=== PATIENT | female | born 1940 | race Caucasian/White ===

== ENCOUNTER 2023-02-05 15:15 | Inpatient (IN) | payer MEDICARE, SELFPAY ==
[2023-02-05 15:15] VITALS: BP 118/55; PULSE 73; RESP 18; TEMP 36.9; O2SAT 96
--- NOTE | 2023-02-05 16:35 | NURSING ---
Patient and family aware of team and rehab routine.
[2023-02-05 19:35] VITALS: PULSE 76; RESP 16; O2SAT 93
[2023-02-05] MEDS: Ipratropium/Albuterol Sulfate 3 ML AMPUL.NEB INHALATION (19:35)
--- NOTE | 2023-02-05 20:10 | NURSING ---
pts peg tube was checked for residual and 0ml was pulled back. Pts peg tube was flushed with 50ml of tap water and no issues with flushing. Pts tube feed was hooked up. Pt tolerated well
[2023-02-05] MEDS: Cephalexin 500 MG Capsule GT (20:11)
[2023-02-05] MEDS: Mirtazapine 15 MG Tablet GT (20:11)
[2023-02-05] MEDS: MELATONIN 3 MG TABLET GT (20:11)
[2023-02-05] MEDS: Timolol 0.5% 5ML OPTH.BTL 1 DRP EACH EYE (20:12)
[2023-02-05] MEDS: Latanoprost 0.005% 1 Bottle 1 DRP EACH EYE (20:12)
[2023-02-05] MEDS: BRIMONIDINE 0.2% 5ML BOTTLE 1 DRP EACH EYE (20:12)
[2023-02-05] MEDS: Jevity 1.5 1,000 ML 20 ML GT (20:13)
[2023-02-05 20:43] VITALS: BP 124/52; PULSE 68; RESP 16; TEMP 36.3; O2SAT 93
[2023-02-06] MEDS: Acetaminophen 650 MG/20 ML UDC GT ×3 (00:01→23:17)
[2023-02-06 00:07] VITALS: BMI 25.7
[2023-02-06 05:52] LABS: Hematocrit 31.2 % (37-47); Mean Corp Hgb Conc 32.1 g/dL (32-36); Mean Corpuscular Hgb 31.6 pg (27.0-32.0); Mean Corpuscular Volume 98.7 fL (81-99); Mean Platelet Vol. 11.6 fl (6.2-12.0); Platelet Count 189 K/mm3 (150-450); RBC Distribution Width CV 13.3 % (11.6-14.6); RBC Distribution Width SD 47.5 fl (35.1-43.9); Red Blood Count 3.16 M/mm3 (4.2-5.4); White Blood Count 6.8 K/mm3 (4.4-11.0)
[2023-02-06] MEDS: Enoxaparin 40 MG/0.4 ML Syringe SC (06:38)
[2023-02-06] MEDS: Levothyroxine 25 MCG TABLET GT (06:39)
[2023-02-06 07:02] LABS: ALB/GLOB Ratio 0.7 RATIO (0.9-2.4); AST(SGOT) 50 U/L (15-37); Alanine Aminotransfer ALT/SGPT 30 U/L (13-56); Albumin, Serum 2.3 g/dL (3.2-5.0); Alkaline Phosphatase 103 U/L (45-117); Anion Gap 6 (5-15); BUN 25 mg/dL (7-18); BUN/Creat Ratio 45.1 RATIO (10-20); Calcium,Total 8.4 mg/dL (8.5-10.1); Chloride 105 mmol/L (98-107); Creatinine, Serum 0.55 mg/dL (0.55-1.02); EST Glomerular Filtration Rate 112 mL/min (>60); Est Glom Filt Rate - Afr Amer 135 mL/min (>60); Estimated Creatinine Clearance 39.03 ml/min; Globulin 3.2 g/dL (2.2-4.2); Glucose 125 mg/dL (74-106); Magnesium 2.4 mg/dL (1.6-2.6); Phosphorus 4.2 mg/dL (2.5-4.9); Potassium 4.1 mmol/L (3.5-5.1); Protein, Total 5.5 g/dL (6.4-8.2); Sodium Level 140 mmol/L (136-145); T4 Free Direct 0.87 ng/dL (0.76-1.46); Thyroid Stim Hormone (TSH) 4.15 uIU/mL (0.358-3.74)
[2023-02-06 07:05] VITALS: PULSE 61; RESP 16; O2SAT 93
[2023-02-06] MEDS: Ipratropium/Albuterol Sulfate 3 ML AMPUL.NEB INHALATION ×3 (07:05→19:27)
[2023-02-06 07:31] VITALS: BP 105/43; PULSE 63; RESP 16; TEMP 36.6; O2SAT 93
[2023-02-06] MEDS: Lisinopril 10 MG Tablet 30 MG GT (11:13)
[2023-02-06] MEDS: Escitalopram Oxalate 10 MG Tablet GT (11:13)
[2023-02-06] MEDS: Polyethylene Glycol 3350 17 GM PACKET GT (11:13)
[2023-02-06] MEDS: Cephalexin 500 MG Capsule GT ×2 (11:14→21:28)
[2023-02-06] MEDS: Timolol 0.5% 5ML OPTH.BTL 1 DRP EACH EYE ×2 (11:14→21:30)
[2023-02-06] MEDS: BRIMONIDINE 0.2% 5ML BOTTLE 1 DRP EACH EYE ×2 (14:22→22:16)
[2023-02-06 16:00] VITALS: PULSE 63; RESP 16
--- NOTE | 2023-02-06 19:23 | EX.PCM.HP.RE ---
HPI - General General Date of Admission: 02/05/23 Date of Service: 02/06/23 Chief Complaint: Here for 3 hours daily rehabilitation. HPI Narrative DAV OLIVARES, is a 82 Female who presents with followin01/26/2023 Presented to [facility] with unwitnessed fall, head trauma. NIHSS 14, LUE/LLE weakness, left facial palsy, right gaze, dysarthria. CT head showed right frontal ICH right > left shift. Intubated, transferred to [facility]. 01/27/2023 Admit to [facility]. NIHSS 9. CTA negative AVM, hemorrhagic mass. Repeat CT head in 6 hours, MRI when able. Cardene drip for systolic blood pressure < 160. No acute surgical intervention recommended. 01/30/2023 Cipro for urinary tract infection. 01/31/2023 MRI brain showed subacute right frontal/basal ganglia hemorrhage with mild right L left midline shift. Tubefeeding continued. QT prolongation improved. Failed swallowing test, NPO recommended. PEG placed. 02/05/2023 Admit to for 3 hours daily rehabilitation, strengthening, prior to discharge home with . [facility] Medical History (Updated 02/06/23 @ 19:[address] Dion Werner MD) Depression Dysphagia as late effect of cerebrovascular accident (CVA) History of basal cell cancer Hypertension Hypothyroidism Non-smoker Stroke/cerebrovascular accident Home Medications acetaminophen 650 mg/20.3 mL oral suspension 650 mg feeding tube Q4H PRN Pain 02/05/23 [History Last Taken Unknown] brimonidine 0.2 % eye drops 1 drp EACH EYE BID eye 02/05/23 [History Last Taken Unknown] cephalexin 250 mg/5 mL oral suspension 500 mg feeding tube BID UTI 02/05/23 [History Last Taken Unknown] escitalopram oxalate 10 mg tablet (Lexapro) 10 mg feeding tube DAILY mood 02/05/23 [History Last Taken Unknown] ipratropium 0.5 mg-albuterol 3 mg (2.5 mg base)/3 mL nebulization soln 3 ml inhalation Q4H breathing 02/05/23 [History Last Taken Unknown] latanoprost 0.005 % eye drops 1 drp EACH EYE QHS eye 02/05/23 [History Last Taken Unknown] levothyroxine 25 mcg tablet 25 mcg feeding tube MOWEFR thyroid 02/05/23 [History Last Taken Unknown] lisinopril 30 mg tablet 30 mg feeding tube DAILY bp 02/05/23 [History Last Taken Unknown] melatonin 3 mg tablet 3 mg feeding tube QHS sleep 02/05/23 [History Last Taken Unknown] mirtazapine 15 mg tablet 15 mg feeding tube QHS mood 02/05/23 [History Last Taken Unknown] polyethylene glycol 3350 17 gram oral powder packet 17 g feeding tube DAILY constipation 02/05/23 [History Last Taken Unknown] timolol maleate 0.5 % eye drops 1 drp EACH EYE BID eye 02/05/23 [History Last Taken Unknown] Allergy/AdvReac Type Severity Reaction Status Date / Time Sulfa (Sulfonamide AdvReac PT UNSURE Verified 02/05/23 16:30 Antibiotics) OF REACTION Family History (Updated 02/06/23 @ 19:[address] Dion Werner MD) Mother Diabetes Hypertension Father Pancreatic cancer Sister CVA (cerebral vascular accident) Heart valve disease Surgical History (Updated 02/06/23 @ 19:[address] Dion Werner MD) History of cataract surgery History of dilatation and curettage History of tonsillectomy Social History (Updated 02/06/23 @ 19:[address] Dion Werner MD) household members: spouse Smoking Status: Never smoker alcohol intake: never substance use type: does not use ROS Constitutional Constitutional: Denies chills, fever(s) or weight gain ENT HEENT: Reports dysphagia; Denies headache(s), nasal congestion or nasal discharge Cardiovascular Cardiovascular: Denies chest pain or palpitations Respiratory/Chest Respiratory/Chest: Denies cough, excessive phlegm production or shortness of breath with exertion Gastrointestinal Gastrointestinal: Denies abdominal pain, nausea or vomiting Genitourinary Genitourinary: Denies dysuria Musculoskeletal Musculoskeletal: Denies joint pain or joint swelling Integumentary Integumentary: Denies rash or wounds Neurologic Neurologic: Reports weakness; Denies focal weakness, numbness or tingling Psychiatric Psychiatric: Denies anxiety, auditory hallucinations, depression, homicidal ideation or suicidal ideation Vital Signs Vital Signs Vital Signs: 02/05/23 19:35 02/05/23 19:35 02/05/23 20:43 Temperature 97.3 F L Temperature Source Axillary Pulse Rate 76 68 Pulse Strength Respiratory Rate 16 16 Respiratory Effort Respiratory Depth Respiratory Pattern Blood Pressure 124/52 H Blood Pressure Mean 76 Blood Pressure Source Monitor Blood Pressure Position Semi-Fowlers Blood Pressure Location Right Arm Pulse Ox 93 93 Oxygen Delivery Method Room Air Room Air 02/05/23 21:26 02/05/23 21:27 02/06/23 07:31 Temperature 97.9 F Temperature Source Temporal Pulse Rate 63 Pulse Strength Normal (2+) Respiratory Rate 16 Respiratory Effort Normal Non-Labored Respiratory Depth Normal Respiratory Pattern Normal Blood Pressure 105/43 L Blood Pressure Mean 63 Blood Pressure Source Monitor Blood Pressure Position Semi-Fowlers Blood Pressure Location Right Arm Pulse Ox 93 Oxygen Delivery Method Room Air 02/06/23 10:00 02/06/23 07:05 02/06/23 07:05 Temperature Temperature Source Pulse Rate 61 Pulse Strength Normal (2+) Respiratory Rate 16 Respiratory Effort Respiratory Depth Respiratory Pattern Normal Blood Pressure Blood Pressure Mean Blood Pressure Source Blood Pressure Position Blood Pressure Location Pulse Ox 93 Oxygen Delivery Method Room Air 02/06/23 16:00 Temperature Temperature Source Pulse Rate 63 Pulse Strength Respiratory Rate 16 Respiratory Effort Respiratory Depth Respiratory Pattern Normal Blood Pressure Blood Pressure Mean Blood Pressure Source Blood Pressure Position Blood Pressure Location Pulse Ox Oxygen Delivery Method Weight Weight: 70 kg Body Mass Index (BMI) 25.7 Indicators for Scoring Admitted with or Primary Diagnosis of CVA/Stroke: Yes Hx of CVA/Stroke: Yes (5/4-R FRONTAL BASAL GANGLIA ICH) Modified [place] Score MRS Score at time of Evaluation: 5-Severe disability NIHSS NIHSS 1a. Level of Consciousness: Alert; keenly responsive 1b. LOC Questions: Answers BOTH questions correctly. 1c. LOC Commands: Performs both tasks correctly. 2. Best Gaze: Normal 3. Visual: No visual loss 4. Facial Palsy: Minor paralysis (flattened nasolabial fold, asymmetry on smiling) 5a. Left Arm: No movement 5b. Right Arm: No drift; arm holds 90 (or 45) degrees for full 10 seconds 6a. Left Leg: No movement 6b. Right Leg: No effort against gravity; leg falls to bed immediately 7. Limb Ataxia: Absent 8. Sensory: [id number] sensory loss; 9. Best Language: No aphasia; normal 10. Dysarthria: Normal 11. Extinction and Inattention: No abnormality Total: 13 Physical Exam Const alert General Appearance: cooperative HEENT normocephalic Eyes PERRL and EOMs intact bilaterally Neck supple, no JVD and no carotid bruits Resp normal respiratory effort, normal air movement and clear to auscultation bilaterally Cardio regular rate and regular rhythm GI normal to inspection, nondistended, normoactive bowel sounds, non-tender and non-distended GI Narrative: PEG tube. Extremity normal capillary refill General Extremity: Negative for edema Skin no rashes or lesions noted General Skin Exam: no breakdown Neuro Neuro Narrative: Left hemiplegia, right lower extremity weakness. Psych affect normal Appearance: appropriate Results Lab / Micro Data Result Diagrams: 02/06/23 05:44 02/06/23 05:44 Labs: Laboratory Results - last 24 hr 02/06/23 05:44: WBC 6.8, RBC 3.16 L, Hgb 10.0 L, Hct 31.2 L, MCV 98.7, MCH 31.6, MCHC 32.1, RDW Std Deviation 47.5 H, RDW Coeff of Erasmo 13.3, Plt Count 189, MPV 11.6 02/06/23 05:44: Sodium 140, Potassium 4.1, Chloride 105, Carbon Dioxide 29.0, Anion Gap 6, BUN 25 H, Creatinine 0.55, Estim Creat Clear Calc 39.03, Est GFR (MDRD) Af Amer 135, Est GFR (MDRD) Non-Af 112, BUN/Creatinine Ratio 45.1 H, Glucose 125 H, Calcium 8.4 L, Phosphorus 4.2, Magnesium 2.4, Total Bilirubin 0.40, AST 50 H, ALT 30, Alkaline Phosphatase 103, Total Protein 5.5 L, Albumin 2.3 L, Globulin 3.2, Albumin/Globulin Ratio 0.7 L, TSH 4.15 H, Free T4 0.87 Assessment & Plan Assessment/Plan (1) Debility: (2) Intracranial hemorrhage on right side following injury: (3) Hypothyroidism: (4) Depression: (5) Insomnia: (6) Glaucoma: PLAN: Plan 82 year old female with below past medical history hospitalized for right frontal/basal ganglia intracranial hemorrhage, no surgery recommended, complicated by dysphagia requiring PEG tube, urinary tract infection, admitted to for 3 hours daily rehabilitation, strengthening, prior to discharge home with . Debility - PT/OT Dysphagia - ST. Pain - Tylenol 650mg q6h prn. Bowel - Miralax 17gm daily, Dulcolax 10mg pr x 1 prn, MOM 30ml x 1 prn. DVT prophylaxis - Lovenox 40mg sc daily. Glaucoma - Brimonidine 1gtt ou daily, Latanoprost 1gtt ou daily, Timolol 1gtt ou bid. Urinary tract infection - Kelex 500mg bid thru 02/12/2023. Depression - Lexapro 40mg daily, Mirtazapine 30mg qhs. Shortness of breath - Duoneb 3ml [id number]. Nutrition - Jevity 1.5 50cc/hour. Hypothyroidism - Levothyroxine 25mcg 3 days/week. Hypertension - Lisinopril 30mg daily. Insomnia - Melatonin 3mg qhs, Trazodone 100mg qhs prn.
[2023-02-06 19:27] VITALS: PULSE 68; RESP 16
--- NOTE | 2023-02-06 19:53 | PCM.RU.PYE ---
Admission Information Primary Diagnosis:: Right frontal basal ganglia intracranial hemorrhage. Status Changes from Prescreening?: No changes Identified Actual Problem List:: UTI, Aspiration, Mobility Impaired, Self Care Deficit, Know.Dfct/Disease Process and Know.Dfct of Medicaitons Potential Problem List:: DVT, Bleeding, Infection, UTI, Aspiration, Falls, Skin Integrity and Depression Risk of Complications DVT: LMWH Bleeding: Monitor Lab Values, Nursing to Teach Precautions for anti-coagulation therapy. and Stroke patients assessed for lethargy or change in status. Infection: Clinical Staff to Monitor for S/S of infection: and S/S of infection include fever, redness, warmth, etc. Urinary Tract Infection: Monitor for frequency, burning, discomfort, or incontinence. and Nursing will obtain urine sample for urinalysis and C&S when ordered. Aspiration: Clinical staff will monitor for coughing, drooling, congestion., Speech will evaluate swallowing and dsyphasia. and Nursing will monitor patient swallowing during meals. Falls: Patient will be evaluated for Fall Precautions and Patient will be placed on Fall Precautions as indicated per protocol. Skin Breakdown: Nursing will assess skin daily using assessment tool. and Nursing will place on Skin Breakdown Precautions as indicated. Pain: Clinical staff will assess patient's pain level per protocol., Medications will be given, if needed, and the pain level reassessed. and Other methods: Massage, distraction, decrease stimulus, etc. used PRN. Plan of Care Patient requires physician specializing in physical medicine and rehab oversight to provide close medical supervision of rehab issues including: Pain Management, Sleep Problems, Bowel and Bladder, Medical and co-morbidity Management, DVT prophylaxis, Rehabilitation Leadership and Coordination of treatment team Patient needs Physical Therapy: For a minimum of 1 hour and At least 5 out of 7 days Patient needs Physical Therapy to improve:: Mobility, Strengthening, Transfers, Stretching, ROM, Endurance, Stairs, Gait and Balance Patient needs Occupational Therapy: For a minimum of 1 hour and At least 5 out of 7 days Patient needs Occupational Therapy to improve ADL's incl.: Eating, Grooming, Bathing, Dressing, Toileting, Toilet transfers, Community Reintegration, Higher functioning activities, Household tasks, Adaptive Equipment and Other activities as determined Patient requires speech therapy: For a minimum of 1 hour and At least 5 out of 7 days Patient requires speech therapy for: Swallowing, Cognition and Language Skills Patient requires 24/ Rehabilitation Nursing for: Pain Issues, Identifying and preventing risk factors, Monitoring and reporting current medical conditions, Assisting with ambulation, transfer, and all ADL's, Teaching patients about disease process and medications, Family teaching, Providing safe environment, Bowel and Bladder Issues, Skin integrity and Medication Management Patient needs Broker In Charge/ Case Management for: Discharge Planning, Arranging Home Equipment or Services and Family Interventions Patient needs Dietary and Nutrition Services for: Adequate Nutrition, Nutritional Supplements and Nutritional Education Goals Patient will remain: free from falls and or injury at time of discharge. Patient will perform bed mobility at: MOD I level of assist. Patient will complete transfers from bed to chair at: - (CGA) Patient will ambulate: with standby assist, with LRD and - (25 feet.) Patient will complete upper body dressing at: Standby Assist. Patient will complete lower body dressing at: Standby Assist. Patient will complete toileting at: MOD I level of assist. Patient will perform bathing at: MOD I level of assist. Patient will complete grooming at: - (Supervision.) Patient will complete home management skills at: MOD I level of assist. Patient will achieve: at MOD I assist Patient will have pain level of: of 3 or less Patient's skin will: remain intact and free from infection. Patient will receive: adequate nutrition. Discharge Planning Pt Prognosis for Sig. Practical Improv. w/in Reasonable Time: Fair Estimated Length of stay (days): 21 Anticipated D/C Destination: [facility] Was Preadmission Assessment Accurate?: Yes
[2023-02-06 21:16] VITALS: BP 122/56; PULSE 78; RESP 16; TEMP 37; O2SAT 98
[2023-02-06 21:22] VITALS: BMI 25.7
[2023-02-06] MEDS: MELATONIN 3 MG TABLET GT (21:28)
[2023-02-06] MEDS: Mirtazapine 15 MG Tablet 30 MG GT (21:29)
[2023-02-06] MEDS: Latanoprost 0.005% 1 Bottle 1 DRP EACH EYE (21:31)
[2023-02-06 22:00] VITALS: PULSE 78; RESP 16; O2SAT 98
[2023-02-07] MEDS: Enoxaparin 40 MG/0.4 ML Syringe SC (05:09)
[2023-02-07] MEDS: Acetaminophen 650 MG/20 ML UDC GT ×2 (05:12→16:44)
[2023-02-07 06:00] VITALS: BMI 26.0; BMI 26.1
[2023-02-07 06:58] VITALS: PULSE 61; RESP 16; O2SAT 98
[2023-02-07 07:34] VITALS: BP 115/46; PULSE 64; RESP 15; TEMP 36.7; O2SAT 95
--- NOTE | 2023-02-07 08:48 | PN_ITS ---
Subjective Subjective Patient seen, examined. She has no complaints except she wants to eat yogurt. Modified barium swallow today, hopefully will be able to advance her diet, currently NPO. Objective Data Objective Data Vital Signs: Vital Signs Temp Pulse Resp BP Pulse Ox O2 Del Method 98.0 F 64 15 115/46 L 95 Room Air 02/07/23 07:34 02/07/23 07:34 02/07/23 07:34 02/07/23 07:34 02/07/23 07:34 02/07/23 07:34 Oxygen Delivery Method Room Air Weight: 70 kg Body Mass Index (BMI) 25.7 Intake & Output: Intake and Output for Last 24 Hours 02/05/23 02/06/23 02/07/23 23:59 23:59 23:59 Intake Total 405 / 405 747.33 / 747.33 Output Total 2575 / 2575 800 / 800 Balance -2170 / -2170 -52.67 / -52.67 Lab / Micro Data Result Diagrams: 02/06/23 05:44 02/06/23 05:44 Physical Exam Const alert General Appearance: cooperative HEENT normocephalic Eyes PERRL and EOMs intact bilaterally Neck supple, no JVD and no carotid bruits Resp normal respiratory effort, normal air movement and clear to auscultation bilaterally Cardio regular rate and regular rhythm GI normal to inspection, nondistended, normoactive bowel sounds, non-tender and non-distended GI Narrative: PEG tube. Extremity normal capillary refill General Extremity: Negative for edema Skin no rashes or lesions noted General Skin Exam: no breakdown Neuro Neuro Narrative: Dense left hemiplegia, right lower extremity weakness. Psych affect normal Appearance: appropriate Assessment & Plan Assessment/Plan (1) Debility: (2) Intracranial hemorrhage on right side following injury: (3) Hypothyroidism: (4) Depression: (5) Insomnia: (6) Glaucoma: PLAN: Plan 82 year old female with below past medical history hospitalized for right frontal/basal ganglia intracranial hemorrhage, no surgery recommended, complicated by dysphagia requiring PEG tube, urinary tract infection, admitted to for 3 hours daily rehabilitation, strengthening, prior to discharge home with . * Debility - PT/OT * Dysphagia - ST, MBS today, hopefully can advance diet from NPO. * Pain - Tylenol 650mg q6h prn. * Bowel - Miralax 17gm daily, Dulcolax 10mg pr x 1 prn, MOM 30ml x 1 prn. * DVT prophylaxis - Lovenox 40mg sc daily. * Glaucoma - Brimonidine 1gtt ou daily, Latanoprost 1gtt ou daily, Timolol 1gtt ou bid. * Urinary tract infection - Kelex 500mg bid thru 02/12/2023. * Depression - Lexapro 40mg daily, Mirtazapine 30mg qhs. * Shortness of breath - Duoneb 3ml [id number]. * Nutrition - Jevity 1.5 50cc/hour. * Hypothyroidism - Levothyroxine 25mcg 3 days/week. * Hypertension - Lisinopril 30mg daily. * Insomnia - Melatonin 3mg qhs, Trazodone 100mg qhs prn. Capacity Capacity Assessment Tool Can the patient make a choice & communicate that choice?: Yes Can the patient understand benefits, risks and alternatives?: Yes Can the patient make a logical, rational choice?: Yes Is the choice the patient makes consistent w/ their values?: Yes Is there an impending, emergent risk to the patient?: No Does the patient have an Advance Directive?: No Is there a Surrogate Available?: Yes i.e. HCPOA: Yes i.e. close relative (spouse, child, parent, sibling)?: Yes
[2023-02-07] MEDS: Lisinopril 10 MG Tablet 30 MG GT (10:41)
[2023-02-07] MEDS: Escitalopram Oxalate 20 MG Tablet 40 MG GT (10:42)
[2023-02-07] MEDS: Cephalexin 500 MG Capsule GT ×2 (10:42→22:06)
[2023-02-07] MEDS: Timolol 0.5% 5ML OPTH.BTL 1 DRP EACH EYE ×2 (10:42→22:06)
[2023-02-07] MEDS: Jevity 1.5. 1,000 ML Bottle 275 ML GT ×3 (10:43→22:34)
[2023-02-07 10:54] VITALS: PULSE 18; RESP 16
--- NOTE | 2023-02-07 11:10 | ST.MBS ---
Modified Barium Swallow - Patient Information Study Date: 02/07/23 Study Time: 12:10 Direct Billable Minutes: 125 Total Minutes procedure & reportin Diagnosis: Pharyngeal dysphagia in the setting of CVA Referring Physician: Dion Werner Chi Reason for Referral: Referred for instrumental assessment (MBSS) to provide further diagnostics and pathophysiology of dysphagia and treatment planning prior to diet advancement. Additional Dysphagia Testing: This patient underwent fiberoptic endoscopic evaluation of swallowing (FEES) on 01/31/2023 which revealed severe pharyngeal dysphagia with copious secretions throughout the hypopharynx and recurrent airway invasion prior to administration of oral trials. There was late and incomplete closure of the laryngeal vestibule with consistent deep penetration and suspected aspiration across all consistencies. Patient insensate to airway invasion and a cued cough did not effectively clear colored PO trials from the laryngeal vestibule. It was recommended that the patient remain NPO with alternative means of nutrition and hydration placement and a repeat MBS in 5-7 days. Medical History: DAV OLIVARES, is a 82 Female who presents with followin01/26/2023 Presented to [facility] with unwitnessed fall, head trauma. NIHSS 14, LUE/LLE weakness, left facial palsy, right gaze, dysarthria. CT head showed right frontal ICH right > left shift. Intubated, transferred to [facility]. 01/27/2023 Admit to [facility]. NIHSS 9. CTA negative AVM, hemorrhagic mass. Repeat CT head in 6 hours, MRI when able. Cardene drip for systolic blood pressure < 160. No acute surgical intervention recommended. 01/30/2023 Cipro for urinary tract infection. 01/31/2023 MRI brain showed subacute right frontal/basal ganglia hemorrhage with mild right L left midline shift. Tubefeeding continued. QT prolongation improved. Failed swallowing test, NPO recommended. PEG placed. 02/05/2023 Admit to for 3 hours daily rehabilitation, strengthening, prior to discharge home with . Past Medical History: Depression, Dysphagia as late effect of cerebrovascular accident (CVA), History of basal cell cancer, Hypertension, Hypothyroidism, Non-smoker, Stroke/cerebrovascular accident Current Diet Ordered: NPO, PEG Dentition: Natural Teeth Mental Status: WNL Comment: Mental status is sufficient to follow commands for participation in MBSS. Respiratory Status: Oxygenating on Room Air - Penetration-Aspiration Scale Penetration-Aspiration Scale: OBJECTIVE ASSESSMENT OF SWALLOW FUNCTION (QUANTITATIVE ? PER TRIAL): PENETRATION / ASPIRATION SCALE (LORD): 1 = does not enter airway 2 = enters airway/above vocal folds/ejected 3 = enters airway/above vocal folds/not ejected 4 = enters airway/contacts vocal folds/ejected 5 = enters airway/contacts vocal folds/not ejected 6 = enters airway/below vocal folds/ejected 7 = enters airway/below vocal folds/not ejected despite effort 8 = enters airway/below vocal folds/no effort VIDEOFLOROSCOPIC SCALE SCORE (LORD): Grade I = aspiration of material that has penetrated into the laryngeal vestibule, intact cough reflex Grade II = aspiration < 10 % of the bolus, intact cough reflex Grade III = aspiration of < 10 % of the bolus, reduced cough reflex or aspiration of > 10 % of the bolus, intact cough reflex Grade IV = aspiration of > 10 % of the bolus, reduced cough reflex - Penetration-Aspiration Scale Score Thin Liquid via teaspoon Result: 1= does not enter airway Thin Liquid via teaspoon Trial 2 Result: 5= enters airways/contacts vocal folds/not ejected Thin Liquid via small single sip from cup Result: 7= enters airways/below vocal folds/not ejected despite effort Thin Liquid via small single sip from cup Effortful swallow Result: 3= enters airways/above vocal folds/not ejected [place] Thick Liquid via small single sip from cup Result: 2= enter airway/above vocal folds/ejected [place] Thick Liquid via small single sip from cup Trial 2 Result: 3= enters airways/above vocal folds/not ejected Pudding Result: 1= does not enter airway Pudding Trial 2 Result: 1= does not enter airway [place] Result: 1= does not enter airway Thin Liquid via small single sip from cup Effortful swallow Trial 2 Result: 8= enters airway/below vocal folds/no effort Thin Liquid via small single sip from cup Effortful swallow Trial 3 Result: 5= enters airways/contacts vocal folds/not ejected [place] Thick Liquid via small single sip from cup Effortful swallow Result: 2= enter airway/above vocal folds/ejected [place] Thick Liquid via small single sip from cup Effortful swallow Trial 2 Result: 2= enter airway/above vocal folds/ejected - Oral Phase Labial Seal: Escape beyond mid-chin Tongue Control During Bolus Hold: Cohesive bolus between tongue to palatal seal Bolus Preparation/Mastication: Slow prolonged chewing/mashing with complete recollection Bolus Transport/Lingual Motion: Slowed tongue motion Oral Residue: Trace residue lining oral structures - Pharyngeal Phase Initiation of Pharyngeal Swallow: Bolus head in pyriforms Soft Palate Elevation: No bolus between soft palate and pharyngeal wall Laryngeal Elevation: Partial superior movement thyroid cart/partial apprx aryt-epig petiole Anterior Hyoid Excursion: Partial anterior movement Epiglottic Movement: Complete inversion Laryngeal Vestibule Closure at Height of Swallow: Incomplete; narrow column of air/contrast in laryngeal vestibule Pharyngeal Stripping Wave: Present - diminished Pharyngoesophageal Segment Opening: Complete distension and complete duration; no obstruction of flow Tongue Base Retraction: Narrow column of contrast between tongue base & post. pharyngeal wall Pharyngeal Residue: Collection of residue within or on pharyngeal structures - Esophageal Phase Esophageal Clearance: Esophageal retention w/ retrograde flow below pharyngoesophageal seg. - Diagnosis/Impression Diagnosis: oropharyngeal dysphagia (R13.12) Impression: This oral phase characterized by: poor labial seal resulting in bolus leakage from the left w/ spillage beyond mid chin slowed mastication slowed lingual motion for A-P bolus transit sufficient oral clearance The pharyngeal phase is marked by: bolus spillage to the level of the pyriforms prior to swallow onset, which intermittently spilled into the laryngeal vestibule contributing to laryngeal penetration prior to swallow onset reduced hyolaryngeal excursion, resulting in incomplete laryngeal vestibule closure w/ penetration during the swallow the patient has a forward leaning posture which further exacerbated spillage from the pyriforms into the laryngeal vestibule during the swallow use of an effortful swallow was not consistently effective to eliminate penetration/aspiration w/ thin liquids, but was effective w/ mildly thick liquids (penetration did occur w/ mildly thick liquids but was only a penetration/aspiration scale score of 2/complete ejection) reduced tongue base retraction and pharyngeal contraction contributed to post prandial contrast retention lining the tongue base and valleculae a double swallow was effective to clear a majority of pharyngeal residue initially the patient was sensate to aspiration as evidenced by cough response, although overt response to aspiration diminished as the study progressed w/ patient demonstrating no response/silent aspiration of thin liquid cough response was not sufficient to expel tracheal aspirate The esophageal phase is marked by: a small cricopharyngeal bar was noted at the level of C5, although this did not impede bolus flow through the esophagus esophageal screening for clearance revealed contrast retention w/in the lower half of the esophagus w/ some retrograde bolus flow appreciated although no bolus flow through the PES was appreciated Diet Recommended: Minced & Moist (IDDSI: 5) Mildly Thick Liquid (IDDSI: 2) Compensatory Strategies Recommended: Effortful swallow w/ mildly thick liquids Small bites and sips Slow rate of intake Double swallow for all bites/sips Sit upright w/ hip flexion at 90 degrees during PO intake, DO NOT LEAN FORWARD/KEEP HEAD UPRIGHT FOR INTAKE? Remain seated upright for 30-60 minutes after PO intake (GERD precautions) Supervision: Yes - 1:1 direct supervision recommended to verbally reinforce the above listed compensatory strategies to reduce risk for aspiration Need for Skilled Dysphagia Intervention: Yes - tx to address - diet texture/liquid consistency management training/instruction for compensatory strategy use oral strengthening to improve labial seal/reduce anterior spillage pharyngeal strengthening to improve swallow onset timing, pharyngeal contraction, laryngeal vestibule closure and tongue base retraction would consider implementation of the [place] Protocol following education Repeat MBSS: Yes - Recommend a repeat MBSS within 2 weeks (if clinically appropriate) and prior to advancement to thin liquids as the patient was noted to silently and overtly aspirate during this MBSS Education Completed: Yes - Results and recommendations were discussed with the Patient immediately following MBS completion, with the Patient verbalizing understanding and agreement with all recommendations and education provided. Patient would benefit from further education/re-instruction re: MBSS findings/recommendations/plan of care - Status Active ST Patient: Active - Contact Information [facility] Speech Therapy:: Brynn Ramirez M.A., CCC-SENIOR FRONT END WEB DEVELOPER [address] [place] [address] x [phone] [email or web address]
[2023-02-07 11:11] VITALS: BMI 25.7
[2023-02-07 13:56] VITALS: PULSE 64; RESP 18
[2023-02-07 19:19] VITALS: BP 120/52; PULSE 65; RESP 16; TEMP 36.6; O2SAT 95
[2023-02-07 22:00] VITALS: PULSE 65; RESP 16; O2SAT 95; BMI 25.7
[2023-02-07] MEDS: Mirtazapine 15 MG Tablet 30 MG GT (22:05)
[2023-02-07] MEDS: MELATONIN 3 MG TABLET GT (22:06)
[2023-02-07] MEDS: Latanoprost 0.005% 1 Bottle 1 DRP EACH EYE (22:07)
[2023-02-07] MEDS: BRIMONIDINE 0.2% 5ML BOTTLE 1 DRP EACH EYE (22:08)
[2023-02-07] MEDS: Menthol/Lanolin/Calamine/Znox 113 GM Tube 1 APPLIC TOPICAL (22:54)
[2023-02-08] MEDS: Levothyroxine 25 MCG TABLET GT (05:00)
[2023-02-08] MEDS: Enoxaparin 40 MG/0.4 ML Syringe SC (05:58)
[2023-02-08] MEDS: Menthol/Lanolin/Calamine/Znox 113 GM Tube 1 APPLIC TOPICAL ×2 (05:59→21:00)
[2023-02-08 06:00] VITALS: BMI 25.6
[2023-02-08] MEDS: Jevity 1.5. 1,000 ML Bottle 275 ML GT ×4 (06:11→21:45)
[2023-02-08] MEDS: Escitalopram Oxalate 20 MG Tablet 40 MG GT (08:07)
[2023-02-08] MEDS: Cephalexin 500 MG Capsule GT ×2 (08:07→21:40)
[2023-02-08] MEDS: Timolol 0.5% 5ML OPTH.BTL 1 DRP EACH EYE ×2 (08:10→21:44)
[2023-02-08] MEDS: Acetaminophen 650 MG/20 ML UDC GT ×2 (08:21→21:39)
[2023-02-08 09:53] VITALS: BP 119/46; PULSE 59; RESP 17; TEMP 37.1; O2SAT 95
[2023-02-08 10:00] VITALS: PULSE 59; RESP 17; O2SAT 95
--- NOTE | 2023-02-08 11:51 | PN_ITS ---
Subjective Subjective Patient seen, examined. No issues overnight, she had modified barium swallow yesterday, Speech therapy will challenge her with modified diet and see how she does. Objective Data Objective Data Vital Signs: Vital Signs Temp Pulse Resp BP Pulse Ox O2 Del Method 98.7 F 59 L 17 119/46 L 95 Room Air 02/08/23 09:53 02/08/23 10:00 02/08/23 10:00 02/08/23 09:53 02/08/23 10:00 02/08/23 10:00 Oxygen Delivery Method Room Air Weight: 69.8 kg Body Mass Index (BMI) 25.6 Intake & Output: Intake and Output for Last 24 Hours 02/06/23 02/07/23 02/08/23 23:59 23:59 23:59 Intake Total 405 / 405 2457.33 / 2457.33 690 / 690 Output Total 2575 / 2575 1999 / 1999 650 / 650 Balance -2170 / -2170 457.33 / 457.33 40 / 40 Lab / Micro Data Result Diagrams: 02/06/23 05:44 02/06/23 05:44 Physical Exam Const alert General Appearance: cooperative HEENT normocephalic Eyes PERRL and EOMs intact bilaterally Neck supple, no JVD and no carotid bruits Resp normal respiratory effort, normal air movement and clear to auscultation bilaterally Cardio regular rate and regular rhythm GI normal to inspection, nondistended, normoactive bowel sounds, non-tender and non-distended GI Narrative: PEG tube. Extremity normal capillary refill General Extremity: Negative for edema Skin no rashes or lesions noted General Skin Exam: no breakdown Neuro Neuro Narrative: Dense left hemiplegia, right lower extremity weakness. Psych affect normal Appearance: appropriate Assessment & Plan Assessment/Plan (1) Debility: (2) Intracranial hemorrhage on right side following injury: (3) Hypothyroidism: (4) Depression: (5) Insomnia: (6) Glaucoma: PLAN: Plan 82 year old female with below past medical history hospitalized for right frontal/basal ganglia intracranial hemorrhage, no surgery recommended, complicated by dysphagia requiring PEG tube, urinary tract infection, admitted to for 3 hours daily rehabilitation, strengthening, prior to discharge home with . * Debility - PT/OT * Dysphagia - ST, MBS done, ST to challenge her with modified diet today. * Pain - Tylenol 650mg q6h prn. * Bowel - Miralax 17gm daily, Dulcolax 10mg pr x 1 prn, MOM 30ml x 1 prn. * DVT prophylaxis - Lovenox 40mg sc daily. * Glaucoma - Brimonidine 1gtt ou daily, Latanoprost 1gtt ou daily, Timolol 1gtt ou bid. * Urinary tract infection - Kelex 500mg bid thru 02/12/2023. * Depression - Lexapro 40mg daily, Mirtazapine 30mg qhs. * Shortness of breath - Duoneb 3ml [id number]. * Nutrition - Jevity 1.5 50cc/hour. * Hypothyroidism - Levothyroxine 25mcg 3 days/week. * Hypertension - Lisinopril 30mg daily. * Insomnia - Melatonin 3mg qhs, Trazodone 100mg qhs prn. Capacity Capacity Assessment Tool Can the patient make a choice & communicate that choice?: Yes Can the patient understand benefits, risks and alternatives?: Yes Can the patient make a logical, rational choice?: Yes Is the choice the patient makes consistent w/ their values?: Yes Is there an impending, emergent risk to the patient?: No Does the patient have an Advance Directive?: No Is there a Surrogate Available?: Yes i.e. HCPOA: Yes i.e. close relative (spouse, child, parent, sibling)?: Yes
[2023-02-08 19:27] VITALS: BP 122/56; PULSE 59; RESP 20; TEMP 37.3; O2SAT 96
[2023-02-08 20:28] VITALS: TEMP 36.8
[2023-02-08 20:50] VITALS: BMI 25.6
[2023-02-08] MEDS: Latanoprost 0.005% 1 Bottle 1 DRP EACH EYE (21:39)
[2023-02-08] MEDS: MELATONIN 3 MG TABLET GT (21:40)
[2023-02-08] MEDS: BRIMONIDINE 0.2% 5ML BOTTLE 1 DRP EACH EYE (21:40)
[2023-02-08] MEDS: Mirtazapine 15 MG Tablet 30 MG GT (21:40)
[2023-02-09 05:46] VITALS: BMI 25.2
[2023-02-09] MEDS: Menthol/Lanolin/Calamine/Znox 113 GM Tube 1 APPLIC TOPICAL ×2 (05:49→20:34)
[2023-02-09] MEDS: Enoxaparin 40 MG/0.4 ML Syringe SC (05:50)
[2023-02-09] MEDS: Jevity 1.5. 1,000 ML Bottle 275 ML GT ×2 (05:51→20:34)
--- NOTE | 2023-02-09 08:14 | CASEMGMT ---
Social Work IDT met with patient, and dtr for Team meeting. Discussed patient's progress in PT/OT/ST/SN. Educated to [facility] insurance with NRD 02/13 and continued stay is not guaranteed with each review. Pt's goal is to return home closer to PLOF with . cannot provide heavy physical assist. Will ReTeam weekly. SW to continue to follow to assist with DC planning. Will determine progress and if an alternative DC plan will be needed. did state he has talked to [facility] SNF for a transition after RU. SW offered to send initial referral for insurance verification. Educated that if insurance does not approve SNF stay, it would be OOP or discuss Medicaid. expressed understanding and is prepared to pay OOP if needed. SW explained and provided family with [facility] information and added to mailing list. Referral sent to [facility] via [facility]. Corie Ngo, ZAIN COLLAZOW
[2023-02-09 08:19] VITALS: BP 116/55; PULSE 60; RESP 15; TEMP 36.8; O2SAT 95
[2023-02-09 08:29] VITALS: BMI 25.2
[2023-02-09] MEDS: Lisinopril 10 MG Tablet 30 MG GT (08:45)
[2023-02-09] MEDS: Polyethylene Glycol 3350 17 GM PACKET GT (08:46)
[2023-02-09] MEDS: Escitalopram Oxalate 20 MG Tablet 40 MG GT (08:46)
[2023-02-09] MEDS: Cephalexin 500 MG Capsule GT ×2 (08:46→20:34)
[2023-02-09] MEDS: Timolol 0.5% 5ML OPTH.BTL 1 DRP EACH EYE ×2 (08:46→20:33)
--- NOTE | 2023-02-09 15:02 | PN_ITS ---
Subjective Subjective Patient seen, examined during Team Rounds. , daughter present for meeting. 2 days ago, she had modified barium swallow, she is now on modified diet. Patient has excellent attitude. Objective Data Objective Data Vital Signs: Vital Signs Temp Pulse Resp BP Pulse Ox O2 Del Method 98.2 F 60 15 116/55 L 95 Room Air 02/09/23 08:19 02/09/23 08:19 02/09/23 08:19 02/09/23 08:19 02/09/23 08:19 02/09/23 08:19 Oxygen Delivery Method Room Air Weight: 68.8 kg Body Mass Index (BMI) 25.2 Intake & Output: Intake and Output for Last 24 Hours 02/07/23 02/08/23 02/09/23 23:59 23:59 23:59 Intake Total 2457.33 / 2457.33 1205 / 1205 2220 / 2220 Output Total 1999 1950 / 1950 2450 / 2450 Balance 457.33 / 457.33 -745 / -745 -230 / -230 Lab / Micro Data Result Diagrams: 02/06/23 05:44 02/06/23 05:44 Physical Exam Const alert General Appearance: cooperative HEENT normocephalic Eyes PERRL and EOMs intact bilaterally Neck supple, no JVD and no carotid bruits Resp normal respiratory effort, normal air movement and clear to auscultation bilaterally Cardio regular rate and regular rhythm GI normal to inspection, nondistended, normoactive bowel sounds, non-tender and non-distended GI Narrative: PEG tube. Extremity normal capillary refill General Extremity: Negative for edema Skin no rashes or lesions noted General Skin Exam: no breakdown Neuro Neuro Narrative: Dense left hemiplegia, also right lower extremity weakness. Psych affect normal Appearance: appropriate Assessment & Plan Assessment/Plan (1) Debility: (2) Intracranial hemorrhage on right side following injury: (3) Hypothyroidism: (4) Depression: (5) Insomnia: (6) Glaucoma: PLAN: Plan 82 year old female with below past medical history hospitalized for right frontal/basal ganglia intracranial hemorrhage, no surgery recommended, complicated by dysphagia requiring PEG tube, urinary tract infection, admitted to for 3 hours daily rehabilitation, strengthening, prior to discharge home with . * Debility - PT/OT * Dysphagia - ST, MBS done, ST to challenge her with modified diet today. * Pain - Tylenol 650mg q6h prn. * Bowel - Miralax 17gm daily, Dulcolax 10mg pr x 1 prn, MOM 30ml x 1 prn. * DVT prophylaxis - Lovenox 40mg sc daily. * Glaucoma - Brimonidine 1gtt ou daily, Latanoprost 1gtt ou daily, Timolol 1gtt ou bid. * Urinary tract infection - Kelex 500mg bid thru 02/12/2023. * Depression - Lexapro 40mg daily, Mirtazapine 30mg qhs. * Shortness of breath - Duoneb 3ml [id number]. * Nutrition - Jevity 1.5 50cc/hour. * Hypothyroidism - Levothyroxine 25mcg 3 days/week. * Hypertension - Lisinopril 30mg daily. * Insomnia - Melatonin 3mg qhs, Trazodone 100mg qhs scheduled, patient woke at 2AM. Capacity Capacity Assessment Tool Can the patient make a choice & communicate that choice?: Yes Can the patient understand benefits, risks and alternatives?: Yes Can the patient make a logical, rational choice?: Yes Is the choice the patient makes consistent w/ their values?: Yes Is there an impending, emergent risk to the patient?: No Does the patient have an Advance Directive?: No Is there a Surrogate Available?: Yes i.e. HCPOA: Yes i.e. close relative (spouse, child, parent, sibling)?: Yes
[2023-02-09] MEDS: Tamsulosin HCl 0.4 MG Capsule PO (17:16)
[2023-02-09] MEDS: BRIMONIDINE 0.2% 5ML BOTTLE 1 DRP EACH EYE (20:33)
[2023-02-09] MEDS: traZODone 100 MG Tablet PO (20:33)
[2023-02-09] MEDS: Latanoprost 0.005% 1 Bottle 1 DRP EACH EYE (20:33)
[2023-02-09] MEDS: Mirtazapine 15 MG Tablet 30 MG GT (20:34)
[2023-02-09] MEDS: MELATONIN 3 MG TABLET GT (20:34)
[2023-02-09] MEDS: Acetaminophen 650 MG/20 ML UDC GT (20:49)
[2023-02-09 21:18] VITALS: BP 108/57; PULSE 61; RESP 16; TEMP 36.5; O2SAT 99
[2023-02-10 06:07] VITALS: BMI 25.4
[2023-02-10] MEDS: Menthol/Lanolin/Calamine/Znox 113 GM Tube 1 APPLIC TOPICAL ×2 (06:11→20:51)
[2023-02-10] MEDS: Levothyroxine 25 MCG TABLET GT (06:12)
[2023-02-10] MEDS: Enoxaparin 40 MG/0.4 ML Syringe SC (06:12)
[2023-02-10 07:46] VITALS: BP 122/51; PULSE 68; RESP 18; TEMP 36.2; O2SAT 95
[2023-02-10] MEDS: Acetaminophen 650 MG/20 ML UDC GT (08:11)
[2023-02-10] MEDS: Polyethylene Glycol 3350 17 GM PACKET GT (08:16)
[2023-02-10] MEDS: Lisinopril 10 MG Tablet 30 MG GT (08:20)
[2023-02-10] MEDS: Cephalexin 500 MG Capsule GT ×2 (08:23→20:50)
[2023-02-10] MEDS: Escitalopram Oxalate 20 MG Tablet 40 MG GT (08:24)
[2023-02-10] MEDS: Timolol 0.5% 5ML OPTH.BTL 1 DRP EACH EYE ×2 (08:37→20:51)
[2023-02-10 10:05] VITALS: BMI 25.4
--- NOTE | 2023-02-10 13:30 | NURSING ---
pt in therapy, therapy notified staff that patient's peg tube had pulled out. Dr. Werner notified. d/t pt eating so well, Dr. Werner stated to leave peg tube out and pt would no longer need to be on Jevity. pt assisted back to bed, cleaned and clothing changed. Peg tube site covered with dressing and secured with tape. pt resting in bed. Will continue to monitor.
[2023-02-10] MEDS: Tamsulosin HCl 0.4 MG Capsule PO (17:09)
[2023-02-10 20:18] VITALS: BP 106/52; PULSE 69; RESP 18; TEMP 36.8; O2SAT 100
[2023-02-10] MEDS: Mirtazapine 15 MG Tablet 30 MG GT (20:50)
[2023-02-10] MEDS: Latanoprost 0.005% 1 Bottle 1 DRP EACH EYE (20:50)
[2023-02-10] MEDS: traZODone 100 MG Tablet PO (20:50)
[2023-02-10] MEDS: MELATONIN 3 MG TABLET GT (20:50)
[2023-02-10] MEDS: BRIMONIDINE 0.2% 5ML BOTTLE 1 DRP EACH EYE (20:51)
[2023-02-10] MEDS: Acetaminophen 325 MG Tablet 650 MG PO (20:57)
[2023-02-11 05:50] VITALS: BMI 25.2
[2023-02-11] MEDS: Menthol/Lanolin/Calamine/Znox 113 GM Tube 1 APPLIC TOPICAL ×2 (05:51→20:15)
[2023-02-11] MEDS: Enoxaparin 40 MG/0.4 ML Syringe SC (05:51)
[2023-02-11 07:55] VITALS: BP 116/47; PULSE 61; RESP 15; TEMP 36.1; O2SAT 94
--- NOTE | 2023-02-11 09:30 | NURSING ---
PT came and asked this nurse if patient can have a chocolate because there is a big box: in patients room. This nurse found box of chocolates in gift bag on patients table by window. This nurse told patient she cannot eat chocolate per her orders (chocolate also contained assortment of nuts, etc). Patient reported her daughter brought her the chocolates. This nurse called daughter Adwoa. This nurse asked Adwoa if she got orders from someone to allow her mother to have these chocolates and daughter reported that a visitor must have brought them in and that she did not nor did she think it was her sister. Adwoa did report she brought her mother in a chocolate chip cookie but did not give it to her.. This nurse told daughter to pass along to other family members that no food can be brought in by them. Daughter agreed. ST made aware today.
[2023-02-11] MEDS: Lisinopril 10 MG Tablet 30 MG GT (09:56)
[2023-02-11] MEDS: Timolol 0.5% 5ML OPTH.BTL 1 DRP EACH EYE ×2 (09:57→20:18)
[2023-02-11] MEDS: Cephalexin 500 MG Capsule GT ×2 (09:57→20:17)
[2023-02-11] MEDS: Polyethylene Glycol 3350 17 GM PACKET GT (09:57)
[2023-02-11] MEDS: Escitalopram Oxalate 20 MG Tablet 40 MG GT (09:57)
[2023-02-11 13:05] VITALS: BMI 25.2
[2023-02-11] MEDS: Tamsulosin HCl 0.4 MG Capsule PO (17:46)
[2023-02-11] MEDS: Acetaminophen 325 MG Tablet 650 MG PO (19:08)
[2023-02-11 19:17] VITALS: BP 107/58; PULSE 71; RESP 18; TEMP 36.9; O2SAT 95
[2023-02-11] MEDS: BRIMONIDINE 0.2% 5ML BOTTLE 1 DRP EACH EYE (20:14)
[2023-02-11] MEDS: traZODone 100 MG Tablet PO (20:16)
[2023-02-11] MEDS: Mirtazapine 15 MG Tablet 30 MG GT (20:17)
[2023-02-11] MEDS: MELATONIN 3 MG TABLET GT (20:17)
[2023-02-11] MEDS: Latanoprost 0.005% 1 Bottle 1 DRP EACH EYE (20:18)
[2023-02-11 20:53] VITALS: BMI 25.2
[2023-02-11 22:00] VITALS: PULSE 71; RESP 18; O2SAT 98
[2023-02-12 06:00] VITALS: BMI 25.3
[2023-02-12] MEDS: Enoxaparin 40 MG/0.4 ML Syringe SC (06:53)
[2023-02-12] MEDS: Menthol/Lanolin/Calamine/Znox 113 GM Tube 1 APPLIC TOPICAL ×2 (06:54→21:14)
[2023-02-12] MEDS: Acetaminophen 325 MG Tablet 650 MG PO ×2 (07:02→16:47)
[2023-02-12] MEDS: Polyethylene Glycol 3350 17 GM PACKET GT (09:32)
[2023-02-12] MEDS: Cephalexin 500 MG Capsule GT ×2 (09:32→21:16)
[2023-02-12] MEDS: Timolol 0.5% 5ML OPTH.BTL 1 DRP EACH EYE ×2 (09:32→21:11)
[2023-02-12] MEDS: Lisinopril 10 MG Tablet 30 MG GT (09:32)
[2023-02-12] MEDS: Escitalopram Oxalate 20 MG Tablet 40 MG GT (09:32)
[2023-02-12 10:00] VITALS: BP 124/56; PULSE 60; RESP 16; TEMP 36.7; O2SAT 95
[2023-02-12 15:26] VITALS: BMI 25.3
[2023-02-12] MEDS: Tamsulosin HCl 0.4 MG Capsule PO (16:47)
[2023-02-12 19:03] VITALS: BP 109/53; PULSE 65; RESP 16; TEMP 36.5; O2SAT 98
[2023-02-12] MEDS: BRIMONIDINE 0.2% 5ML BOTTLE 1 DRP EACH EYE (21:11)
[2023-02-12] MEDS: Latanoprost 0.005% 1 Bottle 1 DRP EACH EYE (21:12)
[2023-02-12] MEDS: Mirtazapine 15 MG Tablet 30 MG GT (21:15)
[2023-02-12] MEDS: traZODone 100 MG Tablet PO (21:15)
[2023-02-12] MEDS: MELATONIN 3 MG TABLET GT (21:16)
[2023-02-12 21:42] VITALS: BMI 25.3
[2023-02-12 22:00] VITALS: PULSE 65; RESP 16; O2SAT 98
[2023-02-13] MEDS: Acetaminophen 325 MG Tablet 650 MG PO ×2 (03:44→20:03)
[2023-02-13] MEDS: Menthol/Lanolin/Calamine/Znox 113 GM Tube 1 APPLIC TOPICAL ×2 (06:36→21:02)
[2023-02-13] MEDS: Levothyroxine 25 MCG TABLET GT (06:37)
[2023-02-13] MEDS: Enoxaparin 40 MG/0.4 ML Syringe SC (06:37)
[2023-02-13 07:44] VITALS: BP 121/52; PULSE 57; RESP 15; TEMP 36.5; O2SAT 94
[2023-02-13] MEDS: Escitalopram Oxalate 20 MG Tablet 40 MG GT (07:58)
[2023-02-13] MEDS: Lisinopril 10 MG Tablet 30 MG GT (07:58)
[2023-02-13] MEDS: Polyethylene Glycol 3350 17 GM PACKET GT (07:58)
[2023-02-13] MEDS: Timolol 0.5% 5ML OPTH.BTL 1 DRP EACH EYE ×2 (07:59→21:03)
[2023-02-13 10:28] VITALS: BMI 24.7
--- NOTE | 2023-02-13 12:19 | PCM.PROGNOTE ---
Subjective Subjective Afebrile VSS-blood pressure is well controlled and the pulse rate is within normal limits. Maintaining appropriate oxygen saturation on RA Oral intake is good Weight is down 3 to 5 pounds since admission. Discussed with nursing - no problems that need addressed Reviewed the PT/OT/ST notes Medication list reviewed. All admission labs were personally reviewed. White blood cell count and platelets were normal but the hemoglobin was decreased at 10.0 with an MCV of 98.7. RDW was normal. BUN was elevated at 25 with a creatinine of 0.55 and a BUN/creatinine ratio of 39. Calcium corrected for hypoalbuminemia was within normal limits. Phosphorus and magnesium were normal. LFTs were unremarkable. TSH was mildly increased at 4.15 but the free T4 was 0.87. Dr. Werner's H&P was reviewed. Patient is an 82 female who presented to [facility] on 01/26/2023 after an unwitnessed fall. NIHSS was 14. A noncontrast CT brain showed a right frontal intracerebral hemorrhage with a right to left shift. She was transported to [facility] where a CTA was negative for AVM or hemorrhagic mass. No surgical intervention was necessary and she had an MRI on 01/31/2023 that showed a subacute right frontal/basal ganglia hemorrhage with a mild right to left midline shift. She failed her swallowing evaluation and was placed on tube feed. PEG tube was placed on 01/31/2023. On 02/05/2023 she was transferred to the acute inpatient rehab unit at [facility] for 3 hours of therapy daily to restore function/independence at or near her previous level. She was quite active prior to the fall. She has a hx of depression and is on Remeron and Lexapro. She follows with a psychiatrist regularly. NIH at presentation to rehab is 13. Psychiatrist is Dr. Sam. Velma tells me that she is sleeping well. She also tells me she is very motivated to get better and go home. She denies lightheadedness, cough, shortness of breath, palpitations, chest pain and calf pain. She has had a Alcantara catheter present since admission. She has occasional nausea. She asked for TUMS for stomach upset. Denies abd pain. She has a PEG and is getting TF. She is on thickened liquids. Objective Data Objective Data Vital Signs: Vital Signs Temp Pulse Resp BP Pulse Ox O2 Del Method 97.7 F L 57 L 15 121/52 H 94 Room Air 02/13/23 07:44 02/13/23 07:44 02/13/23 07:44 02/13/23 07:44 02/13/23 07:44 02/12/23 22:00 Oxygen Delivery Method Room Air Weight: 148 lb 5.938 oz Body Mass Index (BMI) 24.7 Intake & Output: Intake and Output for Last 24 Hours 02/11/23 02/12/23 02/13/23 23:59 23:59 23:59 Intake Total 1410 / 1410 1500 / 1500 740 / 740 Output Total 1655 / 1655 2450 / 2450 800 / 800 Balance -245 / -245 -950 / -950 -60 / -60 Lab / Micro Data Result Diagrams: 02/06/23 05:44 02/06/23 05:44 Physical Exam Const alert, oriented x3 and no apparent distress Constitutional Narrative: Slumped to the R in the bed. Pleasant and talkative General Appearance: cooperative HEENT HEENT Narrative: MM are dry. Denies mouth pain Neck supple Resp clear to auscultation bilaterally Effort and Inspection: Negative for tachypneic or labored Cardio regular rate, regular rhythm, S1 normal heart sound, S2 normal heart sound, no murmurs, no rub and no gallops Cardio Narrative: No ectopy GI normal to inspection, nondistended, normoactive bowel sounds, soft to palpation and non-tender GI Narrative: No guarding with palpation Extremity no calf tenderness General Extremity: Negative for clubbing or edema Skin Rashes: no rashes Neuro Neuro Narrative: Left facial droop. Able to elevate both eyebrows symmetrically. Decreased sensation to the left side of the face, arm and leg. The LUE and LLE are flaccid. Can not shrug the L shoulder. Poor control of the trunk and leans to the R. She has Left side neglect. Speech: speech normal Psych cooperative, denies homicidal ideation and denies suicidal ideation Psych Narrative: She is determined to get better and go home to her treadmill and help her in the garden. Appearance: appropriate Attitude: No agitated Activity / Motor Behavior: Negative for restless Assessment & Plan Assessment/Plan (1) Debility: (2) Intracranial hemorrhage on right side following injury: (3) Dysphagia as late effect of cerebrovascular accident (CVA): (4) Presence of externally removable percutaneous endoscopic gastrostomy (PEG) tube: (5) Urine retention: (6) Fecal incontinence: (7) Normochromic normocytic anemia: (8) Chronic anticoagulation: (9) Hypothyroidism: (10) Depression: (11) Insomnia: (12) Glaucoma: (13) Dyspepsia: PLAN: Plan 1. Continue therapy 2. Check a CBC and BMP in the a.m. 3. Why did she have embolic strokes if she was on Eliquis at the time of the stroke? 4. Continue all current medications. 5. check a UA today and if negative do a voiding trial in the AM. Alcantara was placed for urine retention. 6. She is on high-dose Lexapro and also on Remeron 30 mg nightly which puts her at risk for serotonin syndrome however she has no symptoms at this time. 7. She tells me she has some stomach upset occasionally. She is not on a PPI or a H2 godwin. Will order as needed Mylanta for now and get a Hemoccult stool. If the stool is positive we will start a PPI. Charges/Coding Visit Charges Inpatient E&M: 31936 Subs Hosp L2
[2023-02-13 13:29] VITALS: BMI 24.7
[2023-02-13] MEDS: Tamsulosin HCl 0.4 MG Capsule PO (17:48)
[2023-02-13 19:43] VITALS: BP 118/56; PULSE 68; RESP 16; TEMP 36.6; O2SAT 94
[2023-02-13 20:20] VITALS: BMI 24.7
[2023-02-13] MEDS: MELATONIN 3 MG TABLET GT (21:02)
[2023-02-13] MEDS: BRIMONIDINE 0.2% 5ML BOTTLE 1 DRP EACH EYE (21:02)
[2023-02-13] MEDS: traZODone 100 MG Tablet PO (21:02)
[2023-02-13] MEDS: Mirtazapine 15 MG Tablet 30 MG GT (21:02)
[2023-02-13] MEDS: Latanoprost 0.005% 1 Bottle 1 DRP EACH EYE (21:03)
[2023-02-13 22:00] VITALS: PULSE 68; RESP 16; O2SAT 94
[2023-02-13 22:38] LABS: Bacteria 0 SEEN /hpf (None Seen); Mucous, Urine 0 SEEN /hpf (<or=2+); Red Blood Cells-Urine 0 SEEN /hpf (0-5); Squamous Epithelial Cells - UA 0 SEEN /hpf (5-10)
--- NOTE | 2023-02-13 23:00 | NURSING ---
CHASSIS ENGINEER found NASCIMENTO dislodged when investigating why urine was not filling NASCIMENTO bag. A 16 FR NASCIMENTO was replaced and pt tolerated well. Stat Lock is intact to RUE. Urine specimen collected and sent to lab.
[2023-02-13 23:09] LABS: Color, Urine Yellow (Yellow); Glucose, Dipstick Normal (Normal); Ketone-Dipstick Negative (Negative); Leukocyte Esterase-Dipstick 100 /ul (Negative); Nitrite-Dipstick Negative (Negative); Occult Blood-Urine 50 /ul (Negative); Protein-Dipstick Negative (Negative); Urine Bilirubin Dipstick Negative (Negative); Urine Clarity Clear (Clear); Urine Urobilinogen Normal (Normal)
[2023-02-13 23:15] LABS: White Blood Cells 0-5 SEEN /hpf (0-5)
[2023-02-14] MEDS: Enoxaparin 40 MG/0.4 ML Syringe SC (05:09)
[2023-02-14] MEDS: Menthol/Lanolin/Calamine/Znox 113 GM Tube 1 APPLIC TOPICAL ×2 (05:09→21:27)
[2023-02-14 05:45] LABS: Hematocrit 34.3 % (37-47); Mean Corp Hgb Conc 32.1 g/dL (32-36); Mean Corpuscular Hgb 32.1 pg (27.0-32.0); Mean Platelet Vol. 10.3 fl (6.2-12.0); Platelet Count 308 K/mm3 (150-450); RBC Distribution Width CV 13.5 % (11.6-14.6); RBC Distribution Width SD 48.9 fl (35.1-43.9); Red Blood Count 3.43 M/mm3 (4.2-5.4); White Blood Count 6.2 K/mm3 (4.4-11.0)
[2023-02-14 06:00] VITALS: BMI 24.5
[2023-02-14 06:06] LABS: Anion Gap 7 (5-15); BUN 23 mg/dL (7-18); BUN/Creat Ratio 37.1 RATIO (10-20); Calcium,Total 9.1 mg/dL (8.5-10.1); Chloride 104 mmol/L (98-107); Creatinine, Serum 0.62 mg/dL (0.55-1.02); EST Glomerular Filtration Rate 98 mL/min (>60); Est Glom Filt Rate - Afr Amer 118 mL/min (>60); Estimated Creatinine Clearance 39.03 ml/min; Glucose 115 mg/dL (74-106); Potassium 4.3 mmol/L (3.5-5.1); Sodium Level 141 mmol/L (136-145)
[2023-02-14 07:27] VITALS: BP 107/43; PULSE 59; RESP 16; TEMP 36.7; O2SAT 93
[2023-02-14] MEDS: Lisinopril 10 MG Tablet 30 MG GT (08:22)
[2023-02-14] MEDS: Escitalopram Oxalate 20 MG Tablet 40 MG GT (08:22)
[2023-02-14] MEDS: Timolol 0.5% 5ML OPTH.BTL 1 DRP EACH EYE ×2 (08:22→21:29)
[2023-02-14] MEDS: Polyethylene Glycol 3350 17 GM PACKET GT (08:26)
--- NOTE | 2023-02-14 14:47 | PN_ITS ---
Subjective Subjective Afebrile VSS Maintaining appropriate oxygen saturation on RA Oral intake is good for both food and fluids. Discussed with nursing and therapy - She is shovelling her food in and not waiting until she swallows before taking more bites.......does not listen to the staff member in the room telling her to slow down or to me. She also has trouble attending to the therapists when they tell her to do something. Memory is poor. She does not initiate activity. Reviewed the PT/OT/ST notes Medication list reviewed. Ada denies headache, lightheadedness, shortness of breath, cough, palpitations, chest pain, nausea/vomiting/abdominal pain and calf pain. UA was negative for infection on 02/13/2023 so we will try a voiding trial this week. Suspect urine retention is secondary to the stroke. Objective Data Objective Data Vital Signs: Vital Signs Temp Pulse Resp BP Pulse Ox O2 Del Method 98.0 F 59 L 16 107/43 L 93 Room Air 02/14/23 07:27 02/14/23 07:27 02/14/23 07:27 02/14/23 07:27 02/14/23 07:27 02/14/23 07:27 Oxygen Delivery Method Room Air Weight: 147 lb 0.773 oz Body Mass Index (BMI) 24.5 Intake & Output: Intake and Output for Last 24 Hours 02/12/23 02/13/23 02/14/23 23:59 23:59 23:59 Intake Total 1500 / 1500 1340 / 1340 580 / 580 Output Total 2450 / 2450 1650 / 1650 1250 / 1250 Balance -950 / -950 -310 / -310 -670 / -670 Lab / Micro Data Result Diagrams: 02/14/23 05:39 02/14/23 05:39 Labs: Laboratory Results - last 24 hr 02/13/23 22:20: Urine Color Yellow, Urine Clarity Clear, Urine pH 6.0, Ur Spe cific [place] 1.010, Urine Protein Negative, Urine Glucose (UA) Normal, Urine Ketones Negative, Urine Occult Blood 50 H, Urine Nitrite Negative, Urine Bilirubin Negative, Urine Urobilinogen Normal, Ur Leukocyte Esterase 100 H, Urine RBC 0 SEEN, Urine WBC 0-5 SEEN, Ur Squamous Epith Cells 0 SEEN, Urine Bacteria 0 SEEN, Urine Mucus 0 SEEN 02/14/23 05:39: WBC 6.2, RBC 3.43 L, Hgb 11.0 L, Hct 34.3 L, MCV 100.0 H, MCH 32.1 H, MCHC 32.1, RDW Std Deviation 48.9 H, RDW Coeff of Erasmo 13.5, Plt Count 308, MPV 10.3 02/14/23 05:39: Sodium 141, Potassium 4.3, Chloride 104, Carbon Dioxide 30.0, Anion Gap 7, BUN 23 H, Creatinine 0.62, Estim Creat Clear Calc 39.03, Est GFR (MDRD) Af Amer 118, Est GFR (MDRD) Non-Af 98, BUN/Creatinine Ratio 37.1 H, Glucose 115 H, Calcium 9.1 Micro: Microbiology 02/14/23 13:55 Stool Stool Occult Blood (SANYA) - Final Physical Exam Const alert and no apparent distress Constitutional Narrative: She is appropriate and pleasant. No agitation. Able to make conversation fluently. General Appearance: cooperative HEENT normocephalic Mouth: dry mucous membranes Neck supple Resp normal respiratory effort and clear to auscultation bilaterally Effort and Inspection: Negative for tachypneic or labored Cardio regular rate, regular rhythm and no gallops Cardio Narrative: No ectopy GI normal to inspection, nondistended, normoactive bowel sounds, soft to palpation and non-tender GI Narrative: No guarding with palpation Extremity no calf tenderness General Extremity: Negative for edema Skin General Skin Exam: no breakdown Rashes: no rashes Neuro Neuro Narrative: The R side is flaccid. She has R side neglect. Leaning heavily to the R while laying in bed. Pushing to the L while walking at the wall rail. Decreased sensation on the R side. Speech: speech normal Psych cooperative and affect normal Psych Narrative: She is determined to get better and go home to her treadmill and help her in the garden. Appearance: appropriate Attitude: No agitated Activity / Motor Behavior: Negative for restless Assessment & Plan Assessment/Plan (1) Debility: (2) Intracranial hemorrhage on right side following injury: (3) Dysphagia as late effect of cerebrovascular accident (CVA): (4) Urine retention: (5) Fecal incontinence: (6) Normochromic normocytic anemia: (7) Chronic anticoagulation: (8) Hypothyroidism: (9) Depression: (10) Insomnia: (11) Glaucoma: (12) Dyspepsia: PLAN: Plan 1. Continue therapy 2. Check a CBC and BMP in the a.m. 3. Why did she have embolic strokes if she was on Eliquis at the time of the stroke? 4. Continue all current medications. 5. check a UA today and if negative do a voiding trial in the AM. Alcantara was placed for urine retention. 6. She is on high-dose Lexapro and also on Remeron 30 mg nightly which puts her at risk for serotonin syndrome however she has no symptoms at this time. 7. She tells me she has some stomach upset occasionally. She is not on a PPI or a H2 godwin. Will order as needed Mylanta for now and get a Hemoccult stool. If the stool is positive we will start a PPI. Charges/Coding Visit Charges Inpatient E&M: 81539 Subs Hosp L2
[2023-02-14] MEDS: Acetaminophen 325 MG Tablet 650 MG PO ×2 (15:40→21:27)
[2023-02-14 17:00] VITALS: BMI 24.5
[2023-02-14] MEDS: Tamsulosin HCl 0.4 MG Capsule PO (17:45)
[2023-02-14 19:15] VITALS: BP 104/46; PULSE 69; RESP 14; TEMP 36.6; O2SAT 95
[2023-02-14] MEDS: BRIMONIDINE 0.2% 5ML BOTTLE 1 DRP EACH EYE (21:26)
[2023-02-14] MEDS: MELATONIN 3 MG TABLET GT (21:27)
[2023-02-14] MEDS: Mag Hydrox/Al Hydrox/Simeth 30 ML UDC 15 ML PO (21:28)
[2023-02-14] MEDS: traZODone 100 MG Tablet PO (21:28)
[2023-02-14] MEDS: Mirtazapine 15 MG Tablet 30 MG GT (21:28)
[2023-02-14] MEDS: Latanoprost 0.005% 1 Bottle 1 DRP EACH EYE (21:29)
[2023-02-14 21:46] VITALS: BMI 24.5
[2023-02-14 22:00] VITALS: PULSE 69; RESP 15; O2SAT 95
[2023-02-15] MEDS: Enoxaparin 40 MG/0.4 ML Syringe SC (05:30)
[2023-02-15] MEDS: Levothyroxine 25 MCG TABLET GT (05:30)
[2023-02-15] MEDS: Menthol/Lanolin/Calamine/Znox 113 GM Tube 1 APPLIC TOPICAL ×2 (05:31→21:01)
[2023-02-15 06:00] VITALS: BMI 24.8
[2023-02-15 07:37] VITALS: BP 117/59; PULSE 64; RESP 14; TEMP 36.4; O2SAT 95
[2023-02-15] MEDS: Acetaminophen 325 MG Tablet 650 MG PO ×2 (08:33→20:55)
[2023-02-15] MEDS: Timolol 0.5% 5ML OPTH.BTL 1 DRP EACH EYE ×2 (08:33→21:30)
[2023-02-15] MEDS: Escitalopram Oxalate 20 MG Tablet 40 MG GT (08:33)
[2023-02-15] MEDS: Lisinopril 10 MG Tablet 30 MG GT (08:33)
[2023-02-15] MEDS: Ensure Plus High Protein 120 ML LIQUID PO ×2 (12:45→17:36)
[2023-02-15 15:32] VITALS: BMI 24.8
[2023-02-15] MEDS: Tamsulosin HCl 0.4 MG Capsule PO (17:36)
[2023-02-15 20:00] VITALS: BP 121/53; PULSE 60; RESP 18; TEMP 36.4; O2SAT 97
[2023-02-15] MEDS: Mirtazapine 15 MG Tablet 30 MG GT (20:52)
[2023-02-15] MEDS: traZODone 100 MG Tablet PO (20:53)
[2023-02-15] MEDS: MELATONIN 3 MG TABLET GT (20:53)
[2023-02-15 21:00] VITALS: BMI 24.8
[2023-02-15] MEDS: Latanoprost 0.005% 1 Bottle 1 DRP EACH EYE (21:30)
[2023-02-15] MEDS: BRIMONIDINE 0.2% 5ML BOTTLE 1 DRP EACH EYE (21:30)
[2023-02-16] MEDS: Acetaminophen 325 MG Tablet 650 MG PO ×2 (00:55→20:49)
[2023-02-16] MEDS: Enoxaparin 40 MG/0.4 ML Syringe SC (06:13)
[2023-02-16] MEDS: Menthol/Lanolin/Calamine/Znox 113 GM Tube 1 APPLIC TOPICAL ×2 (06:14→20:45)
[2023-02-16 06:25] VITALS: BMI 25.4
[2023-02-16 08:42] VITALS: BP 106/50; PULSE 65; RESP 16; TEMP 36.4; O2SAT 98
[2023-02-16] MEDS: Timolol 0.5% 5ML OPTH.BTL 1 DRP EACH EYE ×2 (08:50→20:45)
[2023-02-16] MEDS: Escitalopram Oxalate 20 MG Tablet 40 MG GT (08:50)
[2023-02-16] MEDS: Lisinopril 10 MG Tablet 30 MG GT (08:50)
[2023-02-16] MEDS: Ensure Plus High Protein 120 ML LIQUID PO ×3 (08:50→17:26)
[2023-02-16 09:55] VITALS: BMI 25.4
--- NOTE | 2023-02-16 13:56 | CASEMGMT ---
Social Work IDT met with patient, and dtr for Team meeting. Discussed patient's progress in PT/OT/ST/SN. Educated to [facility] insurance with [employer] 02/21 and continued stay is not guaranteed. However, IDT discussed setting DC 02/23 to transfer to [facility] skilled. Family agreeable. SW updated [facility] and this worker needs to submit precert for DC. SW to complete PASRR and schedule cot transport. Will finalize DC plans. Plan: DC 02/23 to [facility], skilled ZAIN McgarryW
--- NOTE | 2023-02-16 16:32 | PN_ITS ---
Subjective Subjective Ada was seen on team rounds today her and her daughter were present in the room for rounds. Afebrile VSS Maintaining appropriate oxygen saturation on RA Oral intake is good. Discussed with nursing - no problems that need addressed. She seems to have slowed down a little when eating. Still not taking one bite at a time however and not swallowing 2 times before putting another bite in her mouth. Still confused and having trouble retaining info/instructions given to her by therapists and nursing. Reviewed the PT/OT/ST notes Medication list reviewed. Ada denies headache, chest pain, palpitations, lightheadedness, shortness of breath, nausea/vomiting/abdominal pain, calf pain and dysuria. Objective Data Objective Data Vital Signs: Vital Signs Temp Pulse Resp BP Pulse Ox O2 Del Method 97.5 F L 65 16 106/50 L 98 Room Air 02/16/23 08:42 02/16/23 08:42 02/16/23 08:42 02/16/23 08:42 02/16/23 08:42 02/16/23 08:42 Oxygen Delivery Method Room Air Weight: 152 lb 8.958 oz Body Mass Index (BMI) 25.4 Intake & Output: Intake and Output for Last 24 Hours 02/14/23 02/15/23 02/16/23 23:59 23:59 23:59 Intake Total 1120 / 1120 960 / 960 800 / 800 Output Total 2150 / 2150 1150 / 1150 1800 / 1800 Balance -1030 / -1030 -190 / -190 -1000 / -1000 Medical Nutrition Assessment Dietitian: Malnutrition Criteria Met Start: 02/15/23 11:25 Freq: Status: Active Protocol: Document 02/15/23 11:25 RMA (Rec: 02/15/23 11:26 RMA [id number]) Nutrition Malnutrition Evidence of Malnutrition Exists Yes Malnutrition (severe): Acute Illness/Injury Evidenced By Suboptimal Energy Intake ( Severe),Weight Loss (Severe) Intake Problem Inadequate Oral Intake Etiology related to difficulty swallowing Signs/Symptoms as evidenced by need for mechanically altered food and thickened liquids; PO meeting less than 50% estimated nutrition needs Status Active Problem Clinical Problem Acute Disease or Injury Related Malnutrition Etiology Severe protein-calorie malnutrition in the context of acute illness related to inadequate energy/oral intake and swallowing difficulty Signs/Symptoms as evidenced by ~2% wt loss x less than 1 week and PO meeting less than 50% estimated nutrition needs Status Active Problem Swallowing Difficulty Etiology related to neurologic deficit/ stroke Signs/Symptoms as evidenced by need for mechanically altered foods and thickened liquids; previous PEG TF Status Active Problem Unintended Weight Loss Etiology related to swallowing difficulty and inadequate energy intake Signs/Symptoms as evidenced by ~1.5 Kg decrease x 5 days Status Active Problem Recommendation Dietitian Recommendations/Changes Will continue Regular/No Added Salt diet with consistency/ texture per [employer], currently [facility] soft (minced and moist) with nectar-thick liquids. Will add magic cup BID w/ lunch and dinner. Will add 120mL thickened ensure plus high protein 3 times per day w/ medpass. Calorie Count in progress: , 02/15, 02/16 Continue daily weights. PLAN: PO improved overall since admit but, remains inadequate to meet estimated nutrition needs, will aggressively supplement meal trays and monitor weight closely. Lab / Micro Data 02/21/23 05:40 02/21/23 05:40 Micro: Microbiology 02/13/23 22:20 Urine Catheter - Alcantara Urine Culture - Final Culture exhibits no growth. 02/14/23 13:55 Stool Stool Occult Blood (SANYA) - Final Physical Exam Const alert and no apparent distress Constitutional Narrative: speech is fluent General Appearance: cooperative HEENT moist oral mucous membranes Resp normal respiratory effort, no use of accessory muscles and clear to auscultation bilaterally Effort and Inspection: Negative for tachypneic or labored Cardio regular rate, regular rhythm and no gallops GI normal to inspection, nondistended, normoactive bowel sounds, non-tender and non-distended GI Narrative: no guarding with palpation Extremity Negative for no calf tenderness General Extremity: Negative for edema Skin General Skin Exam: no breakdown Rashes: no rashes Psych affect normal Assessment & Plan Assessment/Plan (1) Debility: (2) Intracranial hemorrhage on right side following injury: PLAN: Unclear whether she had the stroke and that caused the fall or if she fell and then had a hemorrhage due to head trauma in a pt on [facility]. The fall was not witnessed. (3) Dysphagia as late effect of cerebrovascular accident (CVA): PLAN: PEG tube was accidentally pulled out and Ada has been on a diet and eating 75-100% of her meals since. (4) Urine retention: PLAN: She had a voiding trial that failed earlier in her admission but, we have her on a second voiding trial the day prior to DC. Post void residuals X 2 have been less than 300. She has been having some urine incontinence now.......before this trial she had no urine OP when the Alcantara was removed. (5) Fecal incontinence: (6) Normochromic normocytic anemia: PLAN: HGB has increased from 10 at admission to rehab to 10.7 prior to DC. (7) Chronic anticoagulation: PLAN: This has been on hold since the ICH. She has a hx of PAF and she was on Eliquis at the time of the fall/stroke. Will defer to cardiology and neurology to decide if/when this should be restarted. (8) Hypothyroidism: PLAN: I am not sure why she is on Levothyroid, 3 times a week........from psychiatry or PCP? TSH is mildly increased at 4.15 and the free T4 is normal at 0.87. I have not changed the dose. (9) Depression: PLAN: She is pleasant and talkative with no agitation. Sleeping well at night and she is eating 75-100% of all her meals. She has been appropriate. (10) Insomnia: PLAN: Resolved with Trazodone 100 mg at HS. (11) Glaucoma: (12) Dyspepsia: PLAN: Resolves with PRN Mylanta....which she rarely takes. PLAN: Plan 1. Continue therapy. Pt will not be able to go home at MD....she will need more therapy in a SNF. She is making progress but, it is slow. Still requiring requiring max assist/total assist with most ADL's. Therapy has been working wi th her on mobility. Would like to DC to SNF on 02/23/23. Family is agreeable to this and have selected [facility]. 2. No change to the current drug regimen 3. DC Alcantara for a voiding trial today. Charges/Coding Visit Charges Inpatient E&M: 47432 Subs Hosp L2
[2023-02-16] MEDS: Tamsulosin HCl 0.4 MG Capsule PO (17:26)
[2023-02-16] MEDS: traZODone 100 MG Tablet PO (20:44)
[2023-02-16] MEDS: Mirtazapine 15 MG Tablet 30 MG GT (20:44)
[2023-02-16] MEDS: BRIMONIDINE 0.2% 5ML BOTTLE 1 DRP EACH EYE (20:45)
[2023-02-16] MEDS: Latanoprost 0.005% 1 Bottle 1 DRP EACH EYE (20:45)
[2023-02-16] MEDS: MELATONIN 3 MG TABLET GT (20:45)
[2023-02-16 22:00] VITALS: BP 116/46; PULSE 68; RESP 16; TEMP 36.6; O2SAT 100
[2023-02-17] MEDS: Mag Hydrox/Al Hydrox/Simeth 30 ML UDC 15 ML PO (00:19)
[2023-02-17] MEDS: Menthol/Lanolin/Calamine/Znox 113 GM Tube 1 APPLIC TOPICAL ×2 (06:50→21:22)
[2023-02-17 06:54] VITALS: BMI 24.7
[2023-02-17] MEDS: Enoxaparin 40 MG/0.4 ML Syringe SC (07:17)
[2023-02-17] MEDS: Acetaminophen 325 MG Tablet 650 MG PO ×3 (07:18→21:48)
[2023-02-17] MEDS: Levothyroxine 25 MCG TABLET GT (07:18)
[2023-02-17 08:19] VITALS: BP 101/48; PULSE 64; RESP 16; TEMP 36.6; O2SAT 97
[2023-02-17] MEDS: Lisinopril 10 MG Tablet 30 MG GT (08:43)
[2023-02-17] MEDS: Polyethylene Glycol 3350 17 GM PACKET GT (08:44)
[2023-02-17] MEDS: Timolol 0.5% 5ML OPTH.BTL 1 DRP EACH EYE ×2 (08:44→21:22)
[2023-02-17] MEDS: Escitalopram Oxalate 20 MG Tablet 40 MG GT (08:44)
[2023-02-17] MEDS: Ensure Plus High Protein 120 ML LIQUID PO (08:52)
--- NOTE | 2023-02-17 13:50 | CASEMGMT ---
Social Work Scheduled cot transport 1300 through [facility] for 02/23. PASRR completed. Precert to be submitted 02/21 for admissions to [facility] 02/23 AZIN Mcgarry
[2023-02-17 14:07] VITALS: BMI 24.7
[2023-02-17] MEDS: Tamsulosin HCl 0.4 MG Capsule PO (16:35)
[2023-02-17 19:27] VITALS: BP 126/56; PULSE 69; RESP 14; TEMP 36.8; O2SAT 97
[2023-02-17] MEDS: BRIMONIDINE 0.2% 5ML BOTTLE 1 DRP EACH EYE (21:21)
[2023-02-17] MEDS: Latanoprost 0.005% 1 Bottle 1 DRP EACH EYE (21:22)
[2023-02-17 21:30] VITALS: BMI 24.7
[2023-02-17] MEDS: traZODone 100 MG Tablet PO (21:48)
[2023-02-17] MEDS: MELATONIN 3 MG TABLET GT (21:48)
[2023-02-17] MEDS: Mirtazapine 15 MG Tablet 30 MG GT (21:48)
[2023-02-18] MEDS: Enoxaparin 40 MG/0.4 ML Syringe SC (05:06)
[2023-02-18] MEDS: Menthol/Lanolin/Calamine/Znox 113 GM Tube 1 APPLIC TOPICAL ×2 (05:08→20:50)
[2023-02-18 05:17] VITALS: BMI 24.7
[2023-02-18 08:08] VITALS: BP 103/52; PULSE 67; RESP 16; TEMP 36.8; O2SAT 94
[2023-02-18] MEDS: Timolol 0.5% 5ML OPTH.BTL 1 DRP EACH EYE ×2 (08:39→20:50)
[2023-02-18] MEDS: Acetaminophen 325 MG Tablet 650 MG PO (08:39)
[2023-02-18] MEDS: Polyethylene Glycol 3350 17 GM PACKET GT (08:39)
[2023-02-18] MEDS: Escitalopram Oxalate 20 MG Tablet 40 MG GT (08:39)
[2023-02-18] MEDS: Lisinopril 10 MG Tablet 30 MG GT (08:39)
[2023-02-18] MEDS: Ensure Plus High Protein 120 ML LIQUID PO ×2 (08:40→13:27)
[2023-02-18 09:39] LABS: Bacteria 0 SEEN /hpf (None Seen); Mucous, Urine 0 SEEN /hpf (<or=2+); Red Blood Cells-Urine 0 SEEN /hpf (0-5); Squamous Epithelial Cells - UA 0 SEEN /hpf (5-10); White Blood Cells 0 SEEN /hpf (0-5)
[2023-02-18 09:51] LABS: Color, Urine Yellow (Yellow); Glucose, Dipstick Normal (Normal); Ketone-Dipstick Negative (Negative); Leukocyte Esterase-Dipstick Negative /ul (Negative); Nitrite-Dipstick Negative (Negative); Occult Blood-Urine Negative /ul (Negative); Protein-Dipstick Negative (Negative); Urine Bilirubin Dipstick Negative (Negative); Urine Clarity Clear (Clear); Urine Urobilinogen Normal (Normal)
[2023-02-18 13:31] VITALS: BMI 24.7
[2023-02-18] MEDS: Tamsulosin HCl 0.4 MG Capsule PO (17:47)
[2023-02-18 19:41] VITALS: BP 108/50; PULSE 61; RESP 17; TEMP 36.7; O2SAT 96
[2023-02-18] MEDS: BRIMONIDINE 0.2% 5ML BOTTLE 1 DRP EACH EYE (20:51)
[2023-02-18] MEDS: Mirtazapine 15 MG Tablet 30 MG GT (20:52)
[2023-02-18] MEDS: MELATONIN 3 MG TABLET GT (20:52)
[2023-02-18] MEDS: traZODone 100 MG Tablet PO (20:52)
[2023-02-18] MEDS: Latanoprost 0.005% 1 Bottle 1 DRP EACH EYE (20:53)
[2023-02-18 21:20] VITALS: BMI 24.7
[2023-02-19 06:17] VITALS: BMI 24.6
[2023-02-19] MEDS: Menthol/Lanolin/Calamine/Znox 113 GM Tube 1 APPLIC TOPICAL ×2 (06:20→22:27)
[2023-02-19] MEDS: Enoxaparin 40 MG/0.4 ML Syringe SC (06:21)
[2023-02-19 07:22] VITALS: BP 96/38; PULSE 60; RESP 16; TEMP 36.3; O2SAT 97
[2023-02-19] MEDS: Timolol 0.5% 5ML OPTH.BTL 1 DRP EACH EYE ×2 (08:28→22:27)
[2023-02-19] MEDS: Escitalopram Oxalate 20 MG Tablet 40 MG GT (08:28)
[2023-02-19] MEDS: Lisinopril 10 MG Tablet 30 MG GT (08:28)
[2023-02-19] MEDS: Polyethylene Glycol 3350 17 GM PACKET GT (08:28)
[2023-02-19] MEDS: Ensure Plus High Protein 120 ML LIQUID PO ×3 (08:28→17:25)
[2023-02-19 08:35] VITALS: BP 125/46; PULSE 66
[2023-02-19] MEDS: Acetaminophen 325 MG Tablet 650 MG PO ×2 (08:38→22:16)
[2023-02-19 12:36] VITALS: BMI 24.6
[2023-02-19] MEDS: Tamsulosin HCl 0.4 MG Capsule PO (17:24)
[2023-02-19 19:35] VITALS: BP 108/48; PULSE 71; RESP 16; TEMP 36.7; O2SAT 94
[2023-02-19] MEDS: Mirtazapine 15 MG Tablet 30 MG GT (22:12)
[2023-02-19] MEDS: MELATONIN 3 MG TABLET GT (22:12)
[2023-02-19] MEDS: traZODone 100 MG Tablet PO (22:12)
[2023-02-19] MEDS: BRIMONIDINE 0.2% 5ML BOTTLE 1 DRP EACH EYE (22:13)
[2023-02-19 22:15] VITALS: BMI 24.6
[2023-02-19] MEDS: Latanoprost 0.005% 1 Bottle 1 DRP EACH EYE (22:21)
[2023-02-19 22:43] VITALS: BMI 24.6
--- NOTE | 2023-02-20 03:36 | NURSING ---
Reviewed and agree with LPN. Rishi Yin, documentation and assessment charting.
[2023-02-20 06:00] VITALS: BMI 24.5
[2023-02-20] MEDS: Acetaminophen 325 MG Tablet 650 MG PO ×2 (06:49→20:45)
[2023-02-20] MEDS: Levothyroxine 25 MCG TABLET GT (06:52)
[2023-02-20] MEDS: Enoxaparin 40 MG/0.4 ML Syringe SC (06:52)
[2023-02-20] MEDS: Menthol/Lanolin/Calamine/Znox 113 GM Tube 1 APPLIC TOPICAL ×2 (06:52→20:44)
[2023-02-20 07:19] VITALS: PULSE 64; RESP 18; O2SAT 98
[2023-02-20] MEDS: Ipratropium/Albuterol Sulfate 3 ML AMPUL.NEB INHALATION (07:31)
[2023-02-20] MEDS: Lisinopril 10 MG Tablet 30 MG GT (09:04)
[2023-02-20] MEDS: Ensure Plus High Protein 120 ML LIQUID PO ×3 (09:04→17:55)
[2023-02-20] MEDS: Polyethylene Glycol 3350 17 GM PACKET GT (09:04)
[2023-02-20] MEDS: Escitalopram Oxalate 20 MG Tablet 40 MG GT (09:04)
[2023-02-20] MEDS: Timolol 0.5% 5ML OPTH.BTL 1 DRP EACH EYE ×2 (09:05→20:43)
[2023-02-20 10:00] VITALS: BP 107/45; PULSE 63; RESP 16; TEMP 36.4; O2SAT 96
--- NOTE | 2023-02-20 12:00 | PN_ITS ---
Subjective Subjective Afebrile VSS Maintaining appropriate oxygen saturation on RA Oral intake is good Discussed with nursing - no problems that need addressed. Alcantara had to be reinserted for urine retention. Reviewed the PT/OT/ST notes Medication list reviewed. UA was done when the Alcantara was reinserted and there were no red blood cells, no white blood cells and no bacteria. Ada denies lightheadedness, vertigo, CP, SOB at rest, SOB with exertion, cough, nausea, vomiting, abd pain, diarrhea, constipation, dysuria, calf pain and ankle swelling. She is hoping to get her diet advanced this week. Objective Data Objective Data Vital Signs: Vital Signs Temp Pulse Resp BP Pulse Ox O2 Del Method 97.5 F L 63 16 107/45 L 96 Room Air 02/20/23 10:00 02/20/23 10:00 02/20/23 10:00 02/20/23 10:00 02/20/23 10:00 02/20/23 10:00 Oxygen Delivery Method Room Air Weight: 147 lb 4.301 oz Body Mass Index (BMI) 24.5 Intake & Output: Intake and Output for Last 24 Hours 02/18/23 02/19/23 02/20/23 23:59 23:59 23:59 Intake Total 1300 / 1300 1230 / 1230 240 / 240 Output Total 1425 / 1425 1974 / 1974 650 / 650 Balance -125 / -125 -745 / -745 -410 / -410 Medical Nutrition Assessment Dietitian: Malnutrition Criteria Met Start: 02/15/23 11:25 Freq: Status: Active Protocol: Document 02/15/23 11:25 RMA (Rec: 02/15/23 11:26 RMA [id number]) Nutrition Malnutrition Evidence of Malnutrition Exists Yes Malnutrition (severe): Acute Illness/Injury Evidenced By Suboptimal Energy Intake ( Severe),Weight Loss (Severe) Intake Problem Inadequate Oral Intake Etiology related to difficulty swallowing Signs/Symptoms as evidenced by need for mechanically altered food and thickened liquids; PO meeting less than 50% estimated nutrition needs Status Active Problem Clinical Problem Acute Disease or Injury Related Malnutrition Etiology Severe protein-calorie malnutrition in the context of acute illness related to inadequate energy/oral intake and swallowing difficulty Signs/Symptoms as evidenced by ~2% wt loss x less than 1 week and PO meeting less than 50% estimated nutrition needs Status Active Problem Swallowing Difficulty Etiology related to neurologic deficit/ stroke Signs/Symptoms as evidenced by need for mechanically altered foods and thickened liquids; previous PEG TF Status Active Problem Unintended Weight Loss Etiology related to swallowing difficulty and inadequate energy intake Signs/Symptoms as evidenced by ~1.5 Kg decrease x 5 days Status Active Problem Recommendation Dietitian Recommendations/Changes Will continue Regular/No Added Salt diet with consistency/ texture per [employer], currently [facility] soft (minced and moist) with nectar-thick liquids. Will add magic cup BID w/ lunch and dinner. Will add 120mL thickened ensure plus high protein 3 times per day w/ medpass. Calorie Count in progress: , 02/15, 02/16 Continue daily weights. PLAN: PO improved overall since admit but, remains inadequate to meet estimated nutrition needs, will aggressively supplement meal trays and monitor weight closely. Lab / Micro Data Result Diagrams: 02/14/23 05:39 02/14/23 05:39 Micro: Microbiology 02/18/23 09:22 Urine Catheter - Alcantara Urine Culture - Final Culture exhibits no growth. 02/13/23 22:20 Urine Catheter - Alcantara Urine Culture - Final Culture exhibits no growth. 02/14/23 13:55 Stool Stool Occult Blood (SANYA) - Final Physical Exam Const alert, oriented x3 and no apparent distress Constitutional Narrative: very pleasant. No agitation. No signs of depression. Not anxious. talkative and relates well to staff. General Appearance: cooperative HEENT moist oral mucous membranes Resp normal respiratory effort and clear to auscultation bilaterally Cardio regular rate, regular rhythm and no gallops Cardio Narrative: No ectopy GI normal to inspection, nondistended, normoactive bowel sounds, soft to palpation and non-tender GI Narrative: No guarding with palpation Extremity normal capillary refill and no calf tenderness General Extremity: Negative for edema Skin General Skin Exam: no breakdown Rashes: no rashes Neuro Neuro Narrative: Getting stronger in the RUE and the RLE. She can lift the RLE off the bed 2 and then it falls immediately to the bed. She can move it from side to side much better than at admission. She looks at me and attends now when I stand on her R side. Neglect is improving. She is able to lift the RUE now and can hold it up for 10 sec with only minimal drift. Still has decreased sensation on the right. Psych cooperative and affect normal Appearance: appropriate Attitude: No agitated Activity / Motor Behavior: Negative for restless Assessment & Plan Assessment/Plan (1) Debility: (2) Intracranial hemorrhage on right side following injury: (3) Dysphagia as late effect of cerebrovascular accident (CVA): (4) Urine retention: (5) Fecal incontinence: (6) Normochromic normocytic anemia: (7) Chronic anticoagulation: (8) Hypothyroidism: (9) Depression: (10) Insomnia: (11) Glaucoma: (12) Dyspepsia: PLAN: Plan 1. Continue therapy - plan transfer to [facility], [facility], this week for ongoing therapy. She is progressing in that she can now use the RUE and she can move the RLE side to side in the bed. PT retested on and there had been no change. she is able to sit upright in the bed now without leaning to the left. 2. Recheck a CBC and BMP in the AM Charges/Coding Visit Charges Inpatient E&M: 28169 Subs Hosp L2
[2023-02-20 14:03] VITALS: BMI 24.5
[2023-02-20] MEDS: Tamsulosin HCl 0.4 MG Capsule PO (17:55)
[2023-02-20 19:35] VITALS: BP 112/55; PULSE 63; RESP 17; TEMP 36.2; O2SAT 96
[2023-02-20] MEDS: Latanoprost 0.005% 1 Bottle 1 DRP EACH EYE (20:43)
[2023-02-20] MEDS: Mirtazapine 30 MG Tablet PO (20:43)
[2023-02-20] MEDS: traZODone 100 MG Tablet PO (20:43)
[2023-02-20] MEDS: BRIMONIDINE 0.2% 5ML BOTTLE 1 DRP EACH EYE (20:44)
[2023-02-20] MEDS: MELATONIN 3 MG TABLET PO (20:44)
[2023-02-20 21:25] VITALS: BMI 24.5
[2023-02-21] MEDS: Enoxaparin 40 MG/0.4 ML Syringe SC (05:46)
[2023-02-21 05:48] LABS: Hematocrit 33.6 % (37-47); Hemoglobin 10.7 g/dL (12.0-15.0); Mean Corp Hgb Conc 31.8 g/dL (32-36); Mean Corpuscular Hgb 31.5 pg (27.0-32.0); Mean Corpuscular Volume 98.8 fL (81-99); Mean Platelet Vol. 10.1 fl (6.2-12.0); Platelet Count 230 K/mm3 (150-450); RBC Distribution Width CV 13.2 % (11.6-14.6); RBC Distribution Width SD 47.3 fl (35.1-43.9); White Blood Count 4.9 K/mm3 (4.4-11.0)
[2023-02-21] MEDS: Menthol/Lanolin/Calamine/Znox 113 GM Tube 1 APPLIC TOPICAL ×2 (06:00→20:46)
[2023-02-21 06:03] VITALS: BMI 24.4
[2023-02-21 06:10] LABS: Anion Gap 6 (5-15); BUN 19 mg/dL (7-18); BUN/Creat Ratio 32.8 RATIO (10-20); Chloride 106 mmol/L (98-107); Creatinine, Serum 0.58 mg/dL (0.55-1.02); EST Glomerular Filtration Rate 106 mL/min (>60); Est Glom Filt Rate - Afr Amer 128 mL/min (>60); Estimated Creatinine Clearance 39.03 ml/min; Glucose 110 mg/dL (74-106); Sodium Level 141 mmol/L (136-145)
[2023-02-21] MEDS: Acetaminophen 325 MG Tablet 650 MG PO ×2 (06:12→20:49)
[2023-02-21 07:27] VITALS: BP 126/47; PULSE 63; RESP 16; TEMP 35.8; O2SAT 94
[2023-02-21] MEDS: Escitalopram Oxalate 20 MG Tablet 40 MG PO (07:35)
[2023-02-21] MEDS: Polyethylene Glycol 3350 17 GM PACKET GT (07:39)
[2023-02-21] MEDS: Lisinopril 10 MG Tablet 30 MG PO (07:40)
[2023-02-21] MEDS: Ensure Plus High Protein 120 ML LIQUID PO ×3 (07:40→16:44)
[2023-02-21] MEDS: Timolol 0.5% 5ML OPTH.BTL 1 DRP EACH EYE ×2 (07:40→20:43)
[2023-02-21 15:49] VITALS: BMI 24.4
[2023-02-21] MEDS: Tamsulosin HCl 0.4 MG Capsule PO (16:44)
[2023-02-21 19:58] VITALS: BP 103/47; PULSE 64; RESP 18; TEMP 36.3; O2SAT 97
[2023-02-21] MEDS: BRIMONIDINE 0.2% 5ML BOTTLE 1 DRP EACH EYE (20:43)
[2023-02-21] MEDS: Latanoprost 0.005% 1 Bottle 1 DRP EACH EYE (20:44)
[2023-02-21] MEDS: MELATONIN 3 MG TABLET PO (20:45)
[2023-02-21] MEDS: Mirtazapine 30 MG Tablet PO (20:45)
[2023-02-21] MEDS: traZODone 100 MG Tablet PO (20:45)
[2023-02-21 21:06] VITALS: PULSE 64
--- NOTE | 2023-02-21 22:07 | NURSING ---
Pt requested medication at this time
--- NOTE | 2023-02-21 22:07 | NURSING ---
Pt bladder scanned at 2046 with 259mL , continuing voiding trials per order. No s/s of discomfort.
--- NOTE | 2023-02-21 22:09 | NURSING ---
Pt given medication at 2045 whole with yogurt one at a time, sitting at 90 degree angle, has had small persistent cough since maintaining position and will continue to monitor.
[2023-02-22 06:00] VITALS: BMI 24.7
[2023-02-22] MEDS: Enoxaparin 40 MG/0.4 ML Syringe SC (06:14)
[2023-02-22] MEDS: Levothyroxine 25 MCG TABLET PO (06:14)
[2023-02-22] MEDS: Menthol/Lanolin/Calamine/Znox 113 GM Tube 1 APPLIC TOPICAL ×2 (06:15→20:48)
[2023-02-22] MEDS: Acetaminophen 325 MG Tablet 650 MG PO ×2 (06:27→21:07)
[2023-02-22] MEDS: Ensure Plus High Protein 120 ML LIQUID PO ×2 (07:54→17:24)
[2023-02-22] MEDS: Polyethylene Glycol 3350 17 GM PACKET GT (07:55)
[2023-02-22] MEDS: Lisinopril 10 MG Tablet 30 MG PO (07:55)
[2023-02-22] MEDS: Escitalopram Oxalate 20 MG Tablet 40 MG PO (07:55)
[2023-02-22] MEDS: Timolol 0.5% 5ML OPTH.BTL 1 DRP EACH EYE ×2 (07:58→20:40)
--- NOTE | 2023-02-22 09:14 | CASEMGMT ---
Social Work Precert obtained from [facility] to admit to [facility] on 02/23. ZAIN McgarryW
[2023-02-22 10:00] VITALS: BP 101/47; PULSE 63; RESP 16; TEMP 36.3; O2SAT 94
--- NOTE | 2023-02-22 10:43 | PCM.TXEXTCAR ---
Diet Diet Order/Speech Therapy: 02/10/23 15:54 Diet: Regular - No Added Salt Food consistency:: Mechanical (Minced/Moist) Liquid Consistency:: [place]/Mildly Thick Type of Dietary Supplement:: Magic Cup BID w/ L & D Is pt able to select menu?: Yes Diet Comments: 1:1 supervised meals Routine Orders/Code Status Enema Type: Fleetz Enema Frequency: Daily PRN Suppository Type: Dulcolax 10mg Suppository Frequency: Daily PRN O2 Liters per Minute: 1-2 O2 Frequency: PRN Keep PO Greater than or Equal to (%): 90 Wound(s) peg site: Wound Type: Surgical Incision rt thigh: Wound Type: tape burn Suggestions for Active Care Hours to sit in a chair: 1 Times a day to sit in chair: 3 Therapies Extremity Affected:: RUE/RLE Physical Therapy: Eval and Treat Occupational Therapy: Eval and Treat Speech Therapy: Eval and Treat Problem/Diagnosis (1) Debility: Status: Acute Code(s): R53.81 - Other malaise (2) Intracranial hemorrhage on right side following injury: Status: Acute Code(s): S06.30AA - Unspecified focal traumatic brain injury with loss of consciousness status unknown, initial encounter (3) Dysphagia as late effect of cerebrovascular accident (CVA): Status: Acute Code(s): I69.391 - Dysphagia following cerebral infarction Comment: Much improved. No longer needs a PEG and she is eating a minced and moist diet with nectar thick liquids. (4) Urine retention: Status: Acute Code(s): R33.9 - Retention of urine, unspecified Comment: More likely than not due to stroke. (5) Fecal incontinence: Status: Acute Code(s): R15.9 - Full incontinence of feces (6) Normochromic normocytic anemia: Status: Acute Code(s): D64.9 - Anemia, unspecified Comment: HGB has increased during her stay in rehab and is up to 10.7 from 10 at admission to rehab. Stool is heme negative. 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 Follows regularly with psychiatrist, Dr. Fitch, and has been very stable on this dose with no signs of serotonin S. (10) Insomnia: Status: Acute Code(s): G47.00 - Insomnia, unspecified Comment: Resolved with Trazodone 100 mg at HS. (11) Glaucoma: Status: Acute Code(s): H40.9 - Unspecified glaucoma (12) Dyspepsia: Status: Acute Code(s): R10.13 - Epigastric pain Plan 1. Transfer to [facility] on 02/23/23 for additional therapy prior to going home. Allergies/Procedures Done in Hospital Allergies Sulfa (Sulfonamide Antibiotics) Adverse Reaction (Verified 02/05/23 16:30) PT UNSURE OF REACTION Procedures: - (Modified barium swallow on 02/07/2023) Type of Care/Length of Stay Estimated LOS: More Than 30 Days Type of Care Needed: Skilled Rehab Potential: Fair Prognosis: Fair Additional Orders/Day of Discharge H&P will serve as current which was dated: 02/06/23 Day of Discharge: 02/22/23 Dietary and Speech Recommendations Dietitian Recommendations/Changes: Will continue Regular/No Added Salt diet with consistency/texture per MARKET SPECIALIST, currently mech soft (minced and moist) with nectar-thick liquids. Continue magic cup BID w/ lunch and dinner. Continue 120mL thickened ensure plus high protein 3 times per day w/ medpass. Continue daily weights. PLAN: PO improved overall since admit, however will continue supplements with meal trays/medpass and monitor weight closely to help prevent decline in pt nutritional status. Follow Up Care Please follow up with your Primary Care Physician in: following DC from SNF Please Follow Up With: neurology Please Follow Up With: Dr. Fitch, psychiatrist When: If she starts to decompensate. 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 Attending Provider: Sally Cardenas Consulting Providers: Sally Cardenas Discharge Orders/Prescriptions Prescriptions: New acetaminophen 325 mg Tablet 650 mg PO Q4H PRN PRN (Reason: Pain Score 1-10) Qty: 1 0RF ipratropium-albuterol 0.5 mg-3 mg(2.5 mg base)/3 mL Solution For Nebulization 3 ml inhalation Q4H PRN (Reason: sob/wheezing ) Qty: 1 0RF melatonin 3 mg Tablet 3 mg PO QHS Qty: 1 0RF lisinopril 10 mg Tablet 30 mg PO DAILY Qty: 3 0RF brimonidine 0.2 % Drops 1 drp EACH EYE 2199 Qty: 1 0RF escitalopram oxalate 20 mg Tablet 40 mg PO DAILY Qty: 1 0RF polyethylene glycol 3350 17 gram Powder In Packet 17 g G-tube DAILY Qty: 14 0RF mirtazapine 30 mg Tablet 30 mg PO QHS Qty: 1 0RF bisacodyl 10 mg Suppository 10 mg DC .PRN X 1 PRN (Reason: Constipation) Qty: 12 0RF Ensure Plus High Protein 0.08 gram-1.5 kcal/mL Liquid 120 ml PO TIDCM Qty: 237 0RF alum-mag hydroxide-simeth [Mag-Al Plus Extra Strength] 400-400-40 mg/5 mL Suspension 15 ml PO Q6H PRN PRN (Reason: DYSPEPSIA) Qty: 100 0RF magnesium hydroxide 400 mg/5 mL Suspension 30 ml PO .PRN X 1 PRN (Reason: Constipation) Qty: 355 0RF menthol-zinc oxide [Calmoseptine] 0.44-20.6 % Ointment 1 applic topical BID@0600,2200 Qty: 113 0RF Protocol: *Topical Application Instructions APPLICATION INSTRUCTIONS: buttock tamsulosin 0.4 mg Capsule 0.4 mg PO DAILY@1730 Qty: 1 0RF trazodone 100 mg Tablet 100 mg PO HS Qty: 1 0RF Continued latanoprost 0.005 % Drops 1 drp EACH EYE QHS levothyroxine 25 mcg Tablet 25 mcg feeding tube MOWEFR timolol maleate 0.5 % Drops 1 drp EACH EYE BID Discontinued ipratropium-albuterol [DuoNeb] 0.5 mg-3 mg(2.5 mg base)/3 mL Solution For Nebulization 3 ml INHALATION Q4H cephalexin 250 mg/5 mL Suspension For Reconstitution 500 mg feeding tube BID brimonidine 0.2 % Drops 1 drp EACH EYE BID Rx Instructions: administer approximately 8 hours apart polyethylene glycol 3350 17 gram Powder In Packet 17 g feeding tube DAILY melatonin 3 mg Tablet 3 mg feeding tube QHS lisinopril 30 mg Tablet 30 mg feeding tube DAILY mirtazapine 15 mg Tablet 15 mg feeding tube QHS escitalopram oxalate [Lexapro] 10 mg Tablet 10 mg feeding tube DAILY acetaminophen 650 mg/20.3 mL Suspension 650 mg feeding tube Q4H PRN (Reason: Pain) Referrals / Follow Up: LI Shipley [Other] - 03/02/23 11:[address] Virginia Oliva-PCP [Other] Rachel Gastelum MD [Med Staff - Active Staff] - 03/15/23 10:00 am Disposition Disposition (needs filled in before D/C Order can be placed): Detention Facility
--- NOTE | 2023-02-22 11:38 | DS.PCM_ITS ---
Providers Date of Admission: 02/05/23 Date of Discharge: 01/23/23 Primary Care Physician: Dr. Virginia Oliva none Reason For Visit: HEMORRHAGIC STROKE Diagnosis Discharge Diagnosis (1) Debility: Status: Acute Code(s): R53.81 - Other malaise (2) Intracranial hemorrhage on right side following injury: Status: Acute Code(s): S06.30AA - Unspecified focal traumatic brain injury with loss of consciousness status unknown, initial encounter Plan: Unclear whether she had the stroke and that caused the fall or if she fell and then had a hemorrhage due to head trauma in a pt on Eliquis. The fall was not witnessed. (3) Dysphagia as late effect of cerebrovascular accident (CVA): Status: Acute Code(s): I69.391 - Dysphagia following cerebral infarction Plan: PEG tube was accidentally pulled out and Ada has been on a diet and eating 75- 100% of her meals since. (4) Urine retention: Status: Acute Code(s): R33.9 - Retention of urine, unspecified Plan: She had a voiding trial that failed earlier in her admission but, we have her on a second voiding trial the day prior to DC. Post void residuals X 2 have been less than 300. She has been having some urine incontinence now.......before this trial she had no urine OP when the Alcantara was removed. (5) Fecal incontinence: Status: Acute Code(s): R15.9 - Full incontinence of feces (6) Normochromic normocytic anemia: Status: Acute Code(s): D64.9 - Anemia, unspecified Plan: HGB has increased from 10 at admission to rehab to 10.7 prior to DC. (7) Chronic anticoagulation: Status: Acute Code(s): Z79.01 - correction (current) use of anticoagulants Plan: This has been on hold since the ICH. She has a hx of PAF and she was on Eliquis at the time of the fall/stroke. Will defer to cardiology and neurology to decide if/when this should be restarted. (8) Hypothyroidism: Status: Acute Code(s): E03.9 - Hypothyroidism, unspecified Plan: I am not sure why she is on Levothyroid, 3 times a week........from psychiatry or PCP? TSH is mildly increased at 4.15 and the free T4 is normal at 0.87. I have not changed the dose. (9) Depression: Status: Acute Code(s): F32.A - Depression, unspecified Plan: She is pleasant and talkative with no agitation. Sleeping well at night and she is eating 75-100% of all her meals. She has been appropriate. (10) Insomnia: Status: Acute Code(s): G47.00 - Insomnia, unspecified Plan: Resolved with Trazodone 100 mg at HS. (11) Glaucoma: Status: Acute Code(s): H40.9 - Unspecified glaucoma (12) Dyspepsia: Status: Acute Code(s): R10.13 - Epigastric pain Plan: Resolves with PRN Mylanta....which she rarely takes. Plan 1. Transfer to [facility] on 02/23/23 for additional therapy prior to going home. Medications at Discharge Home Medications latanoprost 0.005 % eye drops 1 drp EACH EYE QHS eye 02/05/23 levothyroxine 25 mcg tablet 25 mcg feeding tube MOWEFR thyroid 02/05/23 timolol maleate 0.5 % eye drops 1 drp EACH EYE BID eye 02/05/23 acetaminophen 325 mg tablet 650 mg PO Q4H PRN PRN Pain Score 1-10 #1 TAB 02/22/23 aluminum-mag hydroxide-simethicone 400 mg-400 mg-40 mg/5 mL oral susp (Mag-Al Plus Extra Strength) 15 ml PO Q6H PRN PRN DYSPEPSIA #100 mL 02/22/23 bisacodyl 10 mg rectal suppository 10 mg AK .PRN X 1 PRN Constipation #12 ea 02/22/23 brimonidine 0.2 % eye drops 1 drp EACH EYE 2200 #1 mL 02/22/23 escitalopram oxalate 20 mg tablet 40 mg PO DAILY #1 TAB 02/22/23 food supplemt, lactose-reduced 0.08 gram-1.5 kcal/mL oral liquid (Ensure Plus High Protein) 120 ml PO TIDCM #237 mL 02/22/23 ipratropium 0.5 mg-albuterol 3 mg (2.5 mg base)/3 mL nebulization soln 3 ml inhalation Q4H PRN sob/wheezing #1 mL 02/22/23 lisinopril 10 mg tablet 30 mg PO DAILY #3 tabs 02/22/23 magnesium hydroxide 400 mg/5 mL oral suspension 30 ml PO .PRN X 1 PRN Constipati on #355 mL 02/22/23 melatonin 3 mg tablet 3 mg PO QHS #1 TAB 02/22/23 menthol 0.44 %-zinc oxide 20.6 % topical ointment (Calmoseptine) 1 applic topical BID@0600,2200 #113 grams 02/22/23 mirtazapine 30 mg tablet 30 mg PO QHS #1 TAB 02/22/23 polyethylene glycol 3350 17 gram oral powder packet 17 g G-tube DAILY #14 ea 02/22/23 tamsulosin 0.4 mg capsule 0.4 mg PO DAILY@1730 #1 cap 02/22/23 trazodone 100 mg tablet 100 mg PO HS #1 TAB 02/22/23 Hospital Course Operations None Procedures - (Modified barium swallow on 02/07/2023) Summary of Care Provided Minutes Spent on Discharge: 45 Hospital Course: Patient is an 82 female who [facility] after an unwitnessed fall.? She was on Eliquis for PAF at the time of the fall. NIHSS was 14 at presentation to the ED.? A noncontrast CT brain showed a right frontal intracerebral hemorrhage with a right to left shift.? She was transported to [facility] where a CTA was negative for AVM or hemorrhagic mass.? No surgical intervention was necessary and she had an MRI on 01/31/2023 that showed a subacute right frontal/basal ganglia hemorrhage with a mild right to left midline shift.? She failed her swallowing evaluation and was placed on t ube feed.? PEG tube was placed on 01/31/2023.? On 02/05/2023 she was transferred to the acute inpatient rehab unit at [facility] for 3 hours of therapy daily to restore function/independence at or near her previous level.? She was quite active prior to the fall and exercised on a treadmill 1-2 times a day.? She has a hx of depression and is on Remeron 30 mg and Lexapro 40 mg.? She follows with a psychiatrist, Dr. Fitch, regularly.? NIH at presentation to rehab was 13. She was flaccid on the Left side when she presented to rehab and could not control her trunk. Shortly after admission to rehab the PEG became dislodged. There was no hemorrhage from the site. She was seen by the ST and started on a diet . She had a MBS on 02/07/2023 and afterward was started on a minced and moist diet with mildly thick liquids. She has done well on this diet when she is compliant with effortful swallow of liquids, small bites and sips and slow rate of intake. She was initially shoveling her food in and ignored commands to slow down and swallow before the next bite. She has done much better with this and is eating more slowly. She occasionally chokes/coughs when she tries to eat too fast. She has been AF throughout her admission to rehab and HR and BP are stable and well controlled. She has maintained an appropriate oxygen saturation on room air for the duration of her stay in rehab. She had a Alcantara catheter at admission to rehab and a voiding trial was done following cessation of Keflex for UTI. She failed and the Alcantara was reinserted. A UA at that time, 02/18/23, was negative for nitrite and had 0 WBCs and 0 RBCs per high-power field. Another voiding trial was started on 02/21/23 and she failed that as well with post void residuals as high as 600. The Alcantara catheter was reinserted. Urine is clear and pale yellow. Ada has become stronger with her core and she is able to sit upright in the chair/bed now without falling to the side. She can now shrug the Left shoulder a little but the L arm and leg are still flaccid. She has no visual field cuts. She has a little sensation in the Left face and the facial droop has improved but, She can not feel me touch her on the left arm or leg. She is eating well and sleeping well. She does cough at times after eating. She requires minimal assistance with grooming and she is listed on the OT notes as max assist with eating but, she feeds herself and someone is there in the room with her telling her to slow down. She requires total assistance for upper body dressing, lower body dressing, and toileting. She is max assist for bathing. She is max assist x2 for standing and is not able to ambulate at this time. She is very limited in her ability to assist with transfers. She is completing memory tasks with 90% accuracy at the time of discharge. She is able to read at the paragraph level without difficulty. Her speech is fluent and she can engage in conversation easily. She is currently on a minced and moist diet with nectar thick liquids and the speech therapist recommends a repeat modified barium swallow prior to advancing to thin liquids. Velma was transferred to [facility] for additional therapy on 02/23/23. She will need to follow up with cardiology and neurology to restart anticoagulation. She is going to follow-up with Dr. Keke Gastelum from urology on 03/15/2023 at 10 AM. She will need an appointment with her PCP, Dr. Virginia Poon, and with Dr. Fitch, psychiatrist. Physical Exam Const alert, oriented x3 and no apparent distress Constitutional Narrative: Lying in bed and able to maintain an upright posture. General Appearance: cooperative and well developed HEENT normocephalic and moist oral mucous membranes Eyes PERRL, EOMs intact bilaterally, conjunctivae normal and no scleral icterus Eyes Narrative: No visual field cuts Neck supple, No nodes and no carotid bruits General: trachea midline Resp normal respiratory effort and clear to auscultation bilaterally Effort and Inspection: Negative for tachypneic or labored Cardio regular rate, regular rhythm, S1 normal heart sound, S2 normal heart sound, no murmurs, no rub and no gallops Cardio Narrative: No ectopy GI normal to inspection, nondistended, normoactive bowel sounds, soft to palpation and non-tender GI Narrative: No guarding with palpation Narrative: Alcantara catheter was replaced on 02/22/2023 for urine retention. Back/Spine no CVA tenderness and no thoracic nor lumbar tenderness Extremity normal capillary refill and no calf tenderness General Extremity: Negative for clubbing or edema Skin General Skin Exam: no breakdown Rashes: no rashes Neuro Neuro Narrative: Getting stronger in the RUE and the RLE. She can lift the RLE off the bed 2 and then it falls immediately to the bed. She can move it from side to side much better than at admission. She looks at me and attends now when I stand on her R side. Left side Neglect is improving. She is able to lift the RUE now and can hold it up for 10 sec with only minimal drift. Still has decreased sensation on the left in the arm and leg but, although the sensation is dull with pinprick she has sensation in the Left face. She can raise both eyebrows and she is able to now shrug the Left shoulder a little. The Left arm and left remain flaccid. No extinction. A and oriented X3. Pleasant and speech is fluent and she is able to hold a good conversation. Speech: speech normal Psych cooperative, affect normal, denies homicidal ideation and denies suicidal ideation Psych Narrative: She is determined to get better and go home to her treadmill and help her in the garden. Appearance: appropriate Attitude: No agitated Activity / Motor Behavior: appropriate eye contact; Negative for restless Speech: normal speech Medical Records Data Medical Nutrition Assessment Dietitian: Malnutrition Criteria Met Start: 02/15/23 11:25 Freq: Status: Active Protocol: Document 02/15/23 11:25 RMA (Rec: 02/15/23 11:26 RMA [id number]) Nutrition Malnutrition Evidence of Malnutrition Exists Yes Malnutrition (severe): Acute Illness/Injury Evidenced By Suboptimal Energy Intake ( Severe),Weight Loss (Severe) Intake Problem Inadequate Oral Intake Etiology related to difficulty swallowing Signs/Symptoms as evidenced by need for mechanically altered food and thickened liquids; PO meeting less than 50% estimated nutrition needs Status Active Problem Clinical Problem Acute Disease or Injury Related Malnutrition Etiology Severe protein-calorie malnutrition in the context of acute illness related to inadequate energy/oral intake and swallowing difficulty Signs/Symptoms as evidenced by ~2% wt loss x less than 1 week and PO meeting less than 50% estimated nutrition needs Status Active Problem Swallowing Difficulty Etiology related to neurologic deficit/ stroke Signs/Symptoms as evidenced by need for mechanically altered foods and thickened liquids; previous PEG TF Status Active Problem Unintended Weight Loss Etiology related to swallowing difficulty and inadequate energy intake Signs/Symptoms as evidenced by ~1.5 Kg decrease x 5 days Status Active Problem Recommendation Dietitian Recommendations/Changes Will continue Regular/No Added Salt diet with consistency/ texture per SAFETY CONSULTANT, currently [facility] soft (minced and moist) with nectar-thick liquids. Will add magic cup BID w/ lunch and dinner. Will add 120mL thickened ensure plus high protein 3 times per day w/ medpass. Calorie Count in progress: , 02/15, 02/16 Continue daily weights. PLAN: PO improved overall since admit but, remains inadequate to meet estimated nutrition needs, will aggressively supplement meal trays and monitor weight closely. Weight / BMI Weight Weight: 148 lb 2 oz Body Mass Index (BMI) 24.7 ABG / Lab / Microbiology Data Result Diagrams: 02/21/23 05:40 02/21/23 05:40 Microbiology: Microbiology 02/18/23 09:22 Urine Catheter - Alcantara Urine Culture - Final Culture exhibits no growth. 02/13/23 22:20 Urine Catheter - Alcantara Urine Culture - Final Culture exhibits no growth. 02/14/23 13:55 Stool Stool Occult Blood (SANYA) - Final Indicators for Scoring Admitted with or Primary Diagnosis of CVA/Stroke: Yes Hx of CVA/Stroke: Yes (5/4-R FRONTAL BASAL GANGLIA ICH) Modified [place] Score MRS Score at time of Evaluation: 5-Severe disability NIHSS NIHSS 1a. Level of Consciousness: Alert; keenly responsive 1b. LOC Questions: Answers BOTH questions correctly. 1c. LOC Commands: Performs both tasks correctly. 2. Best Gaze: Normal 3. Visual: No visual loss 4. Facial Palsy: Minor paralysis (flattened nasolabial fold, asymmetry on smiling) 5a. Left Arm: No movement (she is now able to shrug the shoulder a little) 5b. Right Arm: No drift; arm holds 90 (or 45) degrees for full 10 seconds 6a. Left Leg: No movement 6b. Right Leg: No drift; leg holds 30-degree position for full 5 seconds 7. Limb Ataxia: Absent 8. Sensory: Severe to total sensory loss; 9. Best Language: No aphasia; normal 10. Dysarthria: Awye-ht-[id number] dysarthria; 11. Extinction and Inattention: No abnormality Total: 12 Stroke Questions Stroke Team Activated: No D/C Instructions Please Follow Up With: neurology Meaningful Use Info Meaningful Use Diagnoses (Choose all that apply): Hemorrhagic CVA CVA Therapy Assessed for PT,OT and/or ST?: Yes Discharge Plan Admission Admit Date/Time: 02/05/23 15:15 Primary Reason for Your Visit: Debility due to hemorrhagic CVA. Attending Provider: Sally Cardenas Consulting Providers: Sally Cardenas Discharge Orders/Prescriptions Prescriptions: New acetaminophen 325 mg Tablet 650 mg PO Q4H PRN PRN (Reason: Pain Score 1-10) Qty: 1 0RF ipratropium-albuterol 0.5 mg-3 mg(2.5 mg base)/3 mL Solution For Nebulization 3 ml inhalation Q4H PRN (Reason: sob/wheezing ) Qty: 1 0RF melatonin 3 mg Tablet 3 mg PO QHS Qty: 1 0RF lisinopril 10 mg Tablet 30 mg PO DAILY Qty: 3 0RF brimonidine 0.2 % Drops 1 drp EACH EYE 2199 Qty: 1 0RF escitalopram oxalate 20 mg Tablet 40 mg PO DAILY Qty: 1 0RF polyethylene glycol 3350 17 gram Powder In Packet 17 g G-tube DAILY Qty: 14 0RF mirtazapine 30 mg Tablet 30 mg PO QHS Qty: 1 0RF bisacodyl 10 mg Suppository 10 mg AK .PRN X 1 PRN (Reason: Constipation) Qty: 12 0RF Ensure Plus High Protein 0.08 gram-1.5 kcal/mL Liquid 120 ml PO TIDCM Qty: 237 0RF alum-mag hydroxide-simeth [Mag-Al Plus Extra Strength] 400-400-40 mg/5 mL Suspension 15 ml PO Q6H PRN PRN (Reason: DYSPEPSIA) Qty: 100 0RF magnesium hydroxide 400 mg/5 mL Suspension 30 ml PO .PRN X 1 PRN (Reason: Constipation) Qty: 355 0RF menthol-zinc oxide [Calmoseptine] 0.44-20.6 % Ointment 1 applic topical BID@0600,2200 Qty: 113 0RF Protocol: *Topical Application Instructions APPLICATION INSTRUCTIONS: buttock tamsulosin 0.4 mg Capsule 0.4 mg PO DAILY@1730 Qty: 1 0RF trazodone 100 mg Tablet 100 mg PO HS Qty: 1 0RF Continued latanoprost 0.005 % Drops 1 drp EACH EYE QHS levothyroxine 25 mcg Tablet 25 mcg feeding tube MOWEFR timolol maleate 0.5 % Drops 1 drp EACH EYE BID Discontinued ipratropium-albuterol [DuoNeb] 0.5 mg-3 mg(2.5 mg base)/3 mL Solution For Nebulization 3 ml INHALATION Q4H cephalexin 250 mg/5 mL Suspension For Reconstitution 500 mg feeding tube BID brimonidine 0.2 % Drops 1 drp EACH EYE BID Rx Instructions: administer approximately 8 hours apart polyethylene glycol 3350 17 gram Powder In Packet 17 g feeding tube DAILY melatonin 3 mg Tablet 3 mg feeding tube QHS lisinopril 30 mg Tablet 30 mg feeding tube DAILY mirtazapine 15 mg Tablet 15 mg feeding tube QHS escitalopram oxalate [Lexapro] 10 mg Tablet 10 mg feeding tube DAILY acetaminophen 650 mg/20.3 mL Suspension 650 mg feeding tube Q4H PRN (Reason: Pain) Referrals / Follow Up: LI Shipley [Other] - 03/02/23 11:[address] Virginia Oliva-PCP [Other] Rachel Gastelum MD [Med Staff - Active Staff] - 03/15/23 10:00 am Disposition Disposition (needs filled in before D/C Order can be placed): [facility] Charges/Coding Visit Charges Inpatient E&M: 46492 Disch Hosp >30min
[2023-02-22 14:31] VITALS: BMI 24.7
[2023-02-22] MEDS: Tamsulosin HCl 0.4 MG Capsule PO (17:27)
[2023-02-22 19:56] VITALS: BP 106/47; PULSE 60; RESP 16; TEMP 36.2; O2SAT 95
[2023-02-22] MEDS: Latanoprost 0.005% 1 Bottle 1 DRP EACH EYE (20:47)
[2023-02-22] MEDS: BRIMONIDINE 0.2% 5ML BOTTLE 1 DRP EACH EYE (20:49)
[2023-02-22] MEDS: Mirtazapine 30 MG Tablet PO (21:08)
[2023-02-22] MEDS: traZODone 100 MG Tablet PO (21:08)
[2023-02-22] MEDS: MELATONIN 3 MG TABLET PO (21:08)
[2023-02-22 21:15] VITALS: BMI 24.7
[2023-02-23 05:17] VITALS: BMI 24.7
[2023-02-23] MEDS: Menthol/Lanolin/Calamine/Znox 113 GM Tube 1 APPLIC TOPICAL (05:20)
[2023-02-23] MEDS: Enoxaparin 40 MG/0.4 ML Syringe SC (05:20)
[2023-02-23] MEDS: Acetaminophen 325 MG Tablet 650 MG PO (05:45)
[2023-02-23 07:34] VITALS: BP 115/48; PULSE 61; RESP 16; TEMP 36; O2SAT 97
[2023-02-23] MEDS: Timolol 0.5% 5ML OPTH.BTL 1 DRP EACH EYE (09:39)
[2023-02-23] MEDS: Escitalopram Oxalate 20 MG Tablet 40 MG PO (09:40)
[2023-02-23] MEDS: Lisinopril 10 MG Tablet 30 MG PO (09:40)
[2023-02-23] MEDS: Polyethylene Glycol 3350 17 GM PACKET GT (09:41)
[2023-02-23 10:55] VITALS: BMI 24.7
--- NOTE | 2023-02-23 12:26 | NURSING ---
Report given to nurse at [facility].
--- NOTE | 2023-02-23 13:02 | NURSING ---
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
== END 2023-02-23 13:00 | DRG 57 ==
PROVIDERS: Admitting Provider Internal Medicine; Visit Provider Internal Medicine
DX: I69.254 Hemiplegia and hemiparesis following other nontraumatic intracranial hemorrhage affecting left non-dominant side (principal); N39.0 Urinary tract infection, site not specified; D64.9 Anemia, unspecified; I48.0 Paroxysmal atrial fibrillation; Z93.1 Gastrostomy status; I10 Essential (primary) hypertension; E03.9 Hypothyroidism, unspecified; I69.391 Dysphagia following cerebral infarction; I69.292 Facial weakness following other nontraumatic intracranial hemorrhage; I69.222 Dysarthria following other nontraumatic intracranial hemorrhage; F32.A Depression, unspecified; H40.9 Unspecified glaucoma; Z79.01 Long term (current) use of anticoagulants; G47.00 Insomnia, unspecified; R33.9 Retention of urine, unspecified; Z79.899 Other long term (current) drug therapy; Z79.890 Hormone replacement therapy
CPT/HCPCS: 36415; 74230; 80048; 80053; 81001; 82274; 83735; 84100; 84439; 84443; 85027; 87086; 92507; 92523; 92526; 92610; 92611; 94640; 94668; 97110; 97112; 97116; 97129; 97130; 97162; 97166; 97530; 97535; 97802; 97803